=== PATIENT | male | born 1935 | race Caucasian/White ===

== ENCOUNTER 2016-10-31 14:46 | Inpatient (IN) | payer OTHER, BC ==
[~2016-10-31] VITALS: Ht 182.9 cm; Wt 112.1 kg
[2016-10-31] VITALS (32 sets, daily range): BP systolic 93–175; BP diastolic 52–119
--- NOTE | ~2016-10-31 | P ---
[facility] [place] [address] PROCEDURE REPORT Name: KATELYNN BALTAZAR Room #: 242-P [facility] IN M.R.#: [id number] Admission: 10/31/16 Attend Phys: Houston Enriquez MD Discharge: 11/20/16 Date of : 35 Report #: [id number] THIS REPORT FOR: //name// CC: HERMAN German DATE OF SERVICE: 11/17/2016 PROCEDURE: ICD implantation. HISTORY: The patient is an 81-year-old status post recent TAVR, who had an out of hospital cardiac arrest, and is here for ICD implantation for secondary prevention of sudden cardiac . ANESTHESIA: The patient underwent MAC anesthesia with no anesthesia-related complications. DESCRIPTION OF PROCEDURE: The patient underwent informed consent. We discussed the details of the procedure including the risks, which include but not limited to bleeding, infection, vascular damage, cardiac perforation, and pneumothorax. He and his family members were consented and agreed with the above procedure. DESCRIPTION OF PROCEDURE: The patient was prepped and draped in the sterile fashion and received IV antibiotics prior to initiation of the procedure. The patient underwent a venogram showing patency of the left axillary vein. Next, I injected 20 mL of lidocaine below the level of left clavicle. Incision was made, pocket was created over the prepectoral fascia and access was obtained ____ the left axillary vein. Using the extrathoracic approach, a sheath was positioned using the modified Seldinger technique. Next, the lead was positioned in the right ventricular apex under fluoroscopy with adequate pacing and sensing thresholds and the lead was sutured to the prepectoral fascia. The lead was connected to the device. The pocket was irrigated with vancomycin and the pocket was closed in 3 layers and then surgical glue was placed to the outer skin layer. The patient awoke neurologically and hemodynamically intact with no complications and no significant bleeding. The implanted device was [employer] model # [id number], serial #[id number]. The RV lead was [employer] model #7120Q 65 cm, serial #[id number]. The lead demonstrated an R-wave of 12.8 millivolts, pacing impedance of 340 ohms with a pacing threshold of 0.5 volts at 0.3 milliseconds. The device was programmed to the VVI 40 mode with VT zone set at 180 to 220 beats per minute with ATP while charging followed by max output shocks in the VF zone for greater than 220 beats per minute with ATP while charging followed by max output shocks. CONCLUSIONS: [facility] [address] [place] [address] PROCEDURE REPORT Name: DELANEYKATELYNN Room #: 242-P [facility] IN ..#: [id number] Admission: 10/31/16 Attend Phys: Houston Enriquez MD Discharge: 11/20/16 Date of : 35 Report #: [id number] 1. Successful ICD implantation. 2. Satisfactory right ventricular pacing and sensing threshold. <ELECTRONICALLY SIGNED> By: Harrison Perdomo MD 01/01/17 1550 1516 [id number] Harrison Perdomo MD /nt
--- NOTE | ~2016-10-31 | P ---
[facility] [place] [address] PROCEDURE REPORT Name: DELANEYKATELYNN Room #: 242-P ADM IN M.R.#: [id number] Admission: 10/31/16 Attend Phys: Houston Enriquez MD Discharge: Date of : 35 Report #: [id number] THIS REPORT FOR: //name// CC: HERMAN Enriquez DATE OF SERVICE: 11/13/2016 HISTORY: This is an 81-year-old male status post cardiac arrest and requiring ventilation. Plan is for trach and PEG tube placement. Indications were altered mental status. Procedure was performed in OR room 2 at [facility] on 11/13/2016. PROCEDURE: Esophagogastroduodenoscopy with percutaneous endoscopic gastrostomy tube placement. DESCRIPTION OF PROCEDURE: The patient was brought to the OR room, prepped and draped in a sterile fashion per standard procedures and protocols. The adult upper endoscope was introduced through the mouth into the esophagus into the stomach and to the second portion of the duodenum and then withdrawn slowly. The duodenum was normal. There was mild gastritis in the antrum and a few small fundic gland polyps. There was a small hiatal hernia on retroflexion at the GE junction. The esophagus appeared normal. The PEG tube was placed. Lidocaine with 18-gauge needle was introduced into the stomach and then withdrawn slowly. Approximately 1 mL of lidocaine was used and the trocar was introduced into the stomach and a wire was advanced through the trocar. The snare was used to grab the wire and was withdrawn through the mouth and the PEG tube was pulled through and the bumper was placed at 2.5 cm. The procedure was without complications. Sedation was adequate. Please see anesthesiologist's report for the patient's ASA classification and sedation. The patient tolerated the procedure well and the exam was ended. Recommendations are okay to use PEG tube for water and medications now and in 6 hours, can start tube feeds per nutrition recommendations. <ELECTRONICALLY SIGNED> By: Ebenezer Kellogg MD 11/13/16 1431 1223 1319 Ebenezer Kellogg MD /nt
--- NOTE | ~2016-10-31 | HC ---
[facility] [place] [address] CONSULTATION Name: DELANEYKATELYNN Wilfredo Room #: 242-P [facility] IN M.R.#: [id number] Admission: 10/31/16 Attend Phys: Houston Enriquez MD Discharge: 11/20/16 Date of : 35 Report #: [id number] THIS REPORT FOR: //name// CC: HERMAN Enriquez HISTORY OF PRESENT ILLNESS: The patient is an 81-year-old with history of coronary artery disease status post CABG in 2005 and most recently treatment of severe aortic stenosis with a transaortic valve replacement performed in 10/2016 with an Edward Teresa 26 mm valve. This was performed via transfemoral approach. Also has a history of permanent atrial fibrillation. On 10/31/2016, the patient was at the [facility] [employer] and then had a witnessed cardiac arrest. stem crusher has placed an AED on him, which advised shocking the patient for ventricular arrhythmias. EMS was there as well and resuscitated the patient, brought him to the Emergency Room and he was placed in the ICU. That day, he did have multiple recurrent episodes of VT and was started on amiodarone. On 10/31/2016, the patient had 2 episodes of VT, one at 1900 and another one at 2300, both of which failed adenosine, but responded to defibrillation of 200 joules. Since he has been here, he has had an echocardiogram demonstrating EF of 45% to 50% with distal hypokinesis, PA pressures in the 60s. The patient remains intubated. A trial extubation was performed, but he had vocal cord paralysis. He does have history of laryngeal cancer, status post surgical resection and radiation in 2001. He is likely headed for a PEG tube and trach. He is also being followed by HIM for pancytopenia, which is chronic. REVIEW OF SYSTEMS: Unable to obtain. PAST MEDICAL HISTORY: 1. Coronary artery disease, status post CABG in 2005. 2. Permanent atrial fibrillation. 3. TAVR 10/2016 with an Edward Teresa 26 mm valve. 4. Permanent AFib. 5. Hypothyroidism. 6. Gout. 7. Peripheral vascular disease. 8. Laryngeal cancer, status post surgical resection and radiation 2001. SOCIAL HISTORY: Unknown. FAMILY HISTORY: Unknown. ALLERGIES: No known drug allergies. PHYSICAL EXAMINATION: VITAL SIGNS: Temperature is 36.1, pulse 75, respiration 21, blood pressure 113/66, sats are 100%. GENERAL: He is intubated and sedated, in no acute distress. [address] [address] CONSULTATION Name: KATELYNN BALTAZAR Room #: 242-P [facility] IN ..#: [id number] Admission: 10/31/16 Attend Phys: Houston Enriquez MD Discharge: 11/20/16 Date of : 35 Report #: [id number] HEENT: Sclerae anicteric. Oropharynx is intubated. NECK: Supple, with no thyromegaly. HEART: Irregularly irregular with 2/6 murmur heard best at the right upper sternal border. LUNGS: Clear to auscultation bilaterally. ABDOMEN: Soft, nontender, nondistended with no hepatosplenomegaly. EXTREMITIES: There is no clubbing, cyanosis, edema. NEUROLOGIC: Cranial nerves 2-12 could not be assessed due to sedated state. LABORATORY DATA: White count is 2, hemoglobin is 7, platelets are 49 down from 60. Blood gas, his pH is 7.4, pCO2 35, pO2 123. Coags: INR is 1.4. Chemistry today, sodium 143, potassium 4.4, chloride 100, carbon dioxide 25, BUN 11, creatinine 1.1. Troponin max was . Echo EF 45% to 50% with distal hypokinesis, PA pressure 68. Chest x-ray from 11/07/2016 shows no acute process. CT of the chest also revealed no acute process. EKG from 11/01/2016 showed an atrioventricular rhythm and EKG from 10/31/2016 showed AFib with RVR, heart rate 130s. EKG from 11/03/2016 showed normal sinus rhythm, QTC 405 milliseconds, no ischemic changes. ASSESSMENT AND PLAN: 1. Out of hospital cardiac arrest. 2. Coronary artery disease, status post coronary artery bypass graft. 3. Severe aortic stenosis, status post transaortic valve replacement. 4. Permanent atrial fibrillation. 5. Hypothyroidism. 6. Gout. 7. Peripheral vascular disease. 8. Elevated troponin. 9. Pancytopenia. 10. Vocal cord paralysis. 11. Respiratory failure. In summary, the patient is an 81-year-old with history of CAD and severe aortic stenosis, status post TAVR who has had out of hospital cardiac arrest. The etiology of this is unclear. It does not appear to be secondary to ongoing ischemia. I think that his elevated troponin was likely due to the rest and is not due to acute coronary syndrome. In terms of his recurrent VT, we should continue with amiodarone therapy. In terms of his out of hospital cardiac arrest, if the patient makes a meaningful recovery, then we could proceed with ICD implantation for secondary prevention of sudden cardiac . I would await to do this after he has had his trach and PEG tube placed and other evaluations have been completed including possible bone marrow biopsy. [address] [place] [address] CONSULTATION Name: KATELYNN BALTAZAR Room #: 242-P [facility] IN M.R.#: [id number] Admission: 10/31/16 Attend Phys: Houston Enriquez MD Discharge: 11/20/16 Date of : 35 Report #: [id number] Thank you for allowing me to participate in his care. <ELECTRONICALLY SIGNED> By: Harrison Perdomo MD 12/01/16 1450 1217 1631 Harrison Perdomo MD /nt
--- NOTE | ~2016-10-31 | O ---
[facility] [place] [address] OPERATIVE REPORT Name: KATELYNN BALTAZAR Room #: 242-P ADM IN M.R.#: [id number] Admission: 10/31/16 Attend Phys: Houston Enriquez MD Discharge: Date of : 35 Report #: [id number] THIS REPORT FOR: //name// CC: HERMAN Enriquez DATE OF SERVICE: 11/13/2016 PROCEDURE: Tracheostomy, CPT CODE 80111. PREOPERATIVE DIAGNOSES: 1. Respiratory failure. 2. Vocal cord paresis. POSTOPERATIVE DIAGNOSES: 1. Respiratory failure. 2. Vocal cord paresis. SURGEON: Moe Javed M.D. ANESTHESIA: General. ESTIMATED BLOOD LOSS: 10 mL. COMPLICATIONS: None. SPECIMENS: None. DRAINS AND TUBES: A size 8 Shiley DCT tracheostomy tube was then placed at the end of the case. FINDINGS: The patient was found to have normal tracheal anatomy. INDICATIONS FOR PROCEDURE: The patient is an 81-year-old gentleman who had cardiac arrest and was brought emergently to the hospital. He has been intubated for over a week and has failed wean from the vent and has had one trial of extubation. During this, it was noted his vocal cords were not moving well. It was decided that he would benefit from tracheostomy. The risks, benefits and alternatives were discussed with his family and they agreed to proceed. DESCRIPTION OF PROCEDURE: After informed consent was obtained, the patient was taken to the operating room and placed in the supine position. He underwent general anesthesia. He was prepped and draped in the usual fashion. A time-out was performed. The correct patient and procedure were identified. Approximately 3 mL of 1% lidocaine with 1:100,000 epinephrine were injected into [facility] [address] [place] [address] OPERATIVE REPORT Name: KATELYNN BALTAZAR Room #: 242-P ADM IN .R.#: [id number] Admission: 10/31/16 Attend Phys: Houston Enriquez MD Discharge: Date of : 35 Report #: [id number] the skin overlying the trachea. After time was given for vasoconstriction to take effect, a vertical incision was made extending from the inferior aspect of the cricoid cartilage toward the sternal notch. Subcutaneous fat was then dissected out using Bovie cautery. The fascia was then divided in the midline using Bovie cautery. The strap muscles were identified and these were also divided in the midline using Bovie cautery and retracted laterally. The cautery was used to score down onto the cricoid cartilage and the thyroid isthmus was elevated off of the anterior tracheal wall using a right angle. Thyroid isthmus was then divided using the Bovie cautery. Thyroid lobes were then retracted to the right and left side of the trachea. A Wagner flap was designed between the second and third tracheal rings. This incision was made with an 11 blade scalpel between the second and third tracheal rings and the vertical limbs were then created using curved heavy Garza scissors. A 2-0 silk stitch was then passed through the inferior aspect of the stoma and through the tracheal ring and the flap was retracted inferiorly. The endotracheal tube was then slowly withdrawn superiorly by the anesthesia service. A size 8 tracheostomy tube was then put into the tracheal stoma. He was then connected to the anesthesia circuit and tidal CO2s were confirmed. Hemostasis was then achieved using the Bovie cautery and by packing Surgicel on both sides of the tracheostomy tube and the tube was then secured with 2-0 nylon sutures at each corner and Velcro trach ties. The patient was then turned back over to anesthesia service. He was successfully taken to the ICU in stable condition. All counts were reported as correct and there were no complications during the procedure. <ELECTRONICALLY SIGNED> By: Moe Javed MD 11/14/16 1159 1305 1407 Moe Javed MD /nt
--- NOTE | ~2016-10-31 | 2DMMODE ---
[facility] [address] [place] [address] 2 D/M-MODE ECHOCARDIOGRAM Name: KATELYNN BALTAZAR Room #: 242-P ADM IN .R.#: [id number] Admission: 10/31/16 Attend Phys: Houston Enriquez, Discharge: Date of : 35 Date of Service: 11/03/16 1639 Report #: [id number] THIS REPORT FOR: //name// APPROVED REPORT Study performed: 11/03/2016 09:35:15 EXAM: Comprehensive 2D, Doppler, and color-flow Echocardiogram Patient Location: ICU Room #: 242 Status: routine Other Information Study Quality: PoorFair Technically limited study due to patient on ventilator, inability to position patient. Indications Hx TAVR 2D Dimensions LVEF(%): 58.11 (>50%) IVSd: 15.69 (7-11mm) LVDd: 53.24 mm PWd: 14.81 (7-11mm) LVDs: 36.78 (25-40mm) Aortic Root: 27.79 mm Peralta's LVEF: 58.11 % Volumes Left Atrial Volume (Systole) LA ESV Index: 47.00 mL/m2 Left Ventricle The left ventricle is normal size. Borderline concentric left ventricular hypertrophy. The left ventricular systolic function is normal. LVEF is 50-55%. Right Ventricle The right ventricle is normal size. The right ventricular systolic function is probably normal. Atria Left atrium is dilated. Right atrium is dilated. [facility] [address] [place] [address] 2 D/M-MODE ECHOCARDIOGRAM Name: KATELYNN BALTAZAR Room #: 242-P [facility] IN .R.#: [id number] Admission: 10/31/16 Attend Phys: Houston Enriquez, Discharge: Date of : 35 Date of Service: 11/03/16 1639 Report #: [id number] Aortic Valve TAVR was noted. Trace aortic regurgitation. Mitral Valve The mitral valve is normal in structure. Trace mitral regurgitation. Tricuspid Valve The tricuspid valve is normal in structure. Trace tricuspid regurgitation. Pulmonic Valve The pulmonary valve is normal in structure. Trace pulmonic regurgitation. Pericardium There is no pericardial effusion. <Conclusion> Very limited study. The left ventricular systolic function is normal. LVEF is 50-55%. Bioprosthetic aortic valve. No doppler The right ventricular systolic function is probably normal. Size and function difficult to assess Trace aortic regurgitation. There is no pericardial effusion. <ELECTRONICALLY SIGNED> By: Lyndon Siddiqui MD, [facility] 11/03/16 1639 163 1639 Lyndon Siddiqui MD, FACC /INF
--- NOTE | ~2016-10-31 | HC ---
[facility] [place] [address] CONSULTATION Name: KATELYNN BALTAZAR Room #: 242-P ADM IN M.R.#: [id number] Admission: 10/31/16 Attend Phys: Houston Enriquez MD Discharge: Date of : 35 Report #: [id number] THIS REPORT FOR: //name// CC: HERMAN Enriquez REASON FOR CONSULTATION: Out of hospital cardiac arrest. HISTORY OF PRESENT ILLNESS: The patient is an 81-year-old gentleman who was sitting next to his in the [employer] shop when he lost consciousness. Per EMS, he was defibrillated and received CPR. The down time was from when paramedics were called and when ACLS was started is unknown. He is currently intubated and comatose. His history comes from limited emergency room records. No family is available despite attempts to reach them. After he got to the ICU, he had a sustained episode of monomorphic ventricular tachycardia. This was defibrillated. Presentation note suggests that he had prior heart surgery. Chest x-ray suggests possibly the presence of bioprosthetic aortic valve delivered through TAVR. More details were not known. ALLERGIES: Unknown. MEDICATIONS: Unknown. PAST MEDICAL HISTORY: Permanent atrial fibrillation, remote CABG (No hx of prior DE); recent TAVR (October 2016), hypothyroidism, gout. Recently documented favorable coronary anatomy by angiography FAMILY HISTORY, SOCIAL HISTORY AND REVIEW OF SYSTEMS: Not obtainable. PHYSICAL EXAMINATION: GENERAL: Reveals a comatose gentleman who is intubated with coarse, but equal breath sounds. He is comatose. CARDIAC: Regular rate and rhythm with a 1-2/6 systolic ejection murmur at the base. RESPIRATORY: Reveals diffuse rhonchi and wheezing. ABDOMEN: Soft and nontender. EXTREMITIES: Without cyanosis, clubbing or edema. LABORATORY DATA: EKG demonstrates atrial fibrillation. There are no acute ST or T-wave changes. Sodium is 132, potassium 4.8, creatinine 1.6, troponin 0. White count 9.3, hemoglobin 8.8, platelet count 77,000. CT of the head demonstrates no acute intracranial process. Chest x-ray demonstrates cardiomegaly, prominent thoracic aorta. IMPRESSION: 1. Out of hospital cardiac arrest. 2. Paroxysmal, sustained hemodynamically compromising ventricular tachycardia [facility] [address] [place] [address] CONSULTATION Name: KATELYNN BALTAZAR Room #: 242-P [facility] IN M.R.#: [id number] Admission: 10/31/16 Attend Phys: Houston Enriquez MD Discharge: Date of : 35 Report #: [id number] with recurrent defibrillation. 3. Cardiomegaly, prior open heart surgery. 4. Probable transaortic valve replacement/bioprosthetic aortic valve replacement. 5. Anemia. 6. Possible acute kidney injury. 7. 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 8. Probable aspiration with respiratory failure. RECOMMENDATIONS: 1. Intravenous amiodarone. 2. Echocardiogram with Doppler. 3. Cardiac enzymes. 4. Obtain records for additional historical information. 60 minutes of critical care time spent. <ELECTRONICALLY SIGNED> By: Lyndon Siddiqui MD, [facility] 11/02/16 [phone] Lyndon Siddiqui MD, FAC /nt
--- NOTE | ~2016-10-31 | 2DMMODE ---
[facility] [address] [place] [address] 2 D/M-MODE ECHOCARDIOGRAM Name: DELANEYKATELYNN Room #: 242-P [facility] IN .R.#: [id number] Admission: 10/31/16 Attend Phys: Houston Enriquez, Discharge: Date of : 35 Date of Service: 11/03/16 1753 Report #: [id number] THIS REPORT FOR: //name// APPROVED REPORT Study performed: 11/01/2016 06:49:02 EXAM: Comprehensive 2D, Doppler, and color-flow Echocardiogram Patient Location: Bedside Room #: 242 Status: routine Other Information Study Quality: Adequate Indications Status post cardiac arrest. Hx:AVR 2D Dimensions RVDd: 44.45 mm LVEF(%): 51.93 (>50%) IVSd: 14.01 (7-11mm) LVOT Diam: 19.89 (18-24mm) LVDd: 57.38 mm PWd: 13.88 (7-11mm) Ascending Ao: 32.61 (22-36mm) LVDs: 41.89 (25-40mm) Aortic Root: 36.26 mm Peralta's LVEF: 51.93 % Volumes Left Atrial Volume (Systole) Single Plane 4CH: 101.57 mL Single Plane 2CH: 80.97 mL LA ESV Index: 47.00 mL/m2 Aortic Valve AoV Peak Scotty.: 2.16 m/s AO Peak Gr.: 19.42 mmHg LVOT Max P.88 mmHg AO Mean Gr.: 10.50 mmHg AO V2 Mean: 1.53 m/s LVOT Max V: 0.68 m/s AO V2 VTI: 33.80 cm FARHAN Vmax: 0.97 cm2 Mitral Valve MV Decel. Time: 199.20 ms MV E Max Scotty.: 1.29 m/s IVRT: 64.59 ms [facility] [place] [address] 2 D/M-MODE ECHOCARDIOGRAM Name: KATELYNN BALTAZAR Room #: 242-P [facility] IN .R.#: [id number] Admission: 10/31/16 Attend Phys: Houston Enriquez, Discharge: Date of : 35 Date of Service: 11/03/16 1753 Report #: [id number] Pulmonary Valve PV Peak Scotty.: 1.27 m/s PV Peak Gr.: 6.44 mmHg Pulmonary Vein P Vein S: 0.46 m/s P Vein D: 0.30 m/s P Vein S/D Ratio: 1.53 Tricuspid Valve TR Peak Scotty.: 3.79 m/s RAP Estimate: 10.00 mmHg TR Peak Gr.: 57.52 mmHg PA Pressure: 68.00 mmHg Left Ventricle Left ventricle is normal size. Mild concentric left ventricular hypertrophy. Left ventricular systolic function is mildly decreased. LVEF is 45%. This study is not technically sufficiet to allow evaluation of the LV diastolic function due to arrhythmia. This study is not technically sufficient to allow evaluation of the LV diastolic function. Right Ventricle Right ventricle is dilated. Right ventricle is severely hypokinetic. Atria Left atrium is mildly dilated. Right atrium is dilated. Aortic Valve Bioprosthetic aortic valve is present. Peak velocity of 2.2m/s with a PPG of 19mmHg and a MPG of 11mmHg. No aortic regurgitation is present. Mitral Valve Mild mitral annular calcification. Mild mitral regurgitation. No evidence of mitral valve stenosis. Tricuspid Valve The tricuspid valve is normal in structure. There is moderate tricuspid regurgitation. The right atrial pressure is estimated at 10 mmHg. There is moderate-severe pulmonary hypertension with an estimated PAP of 68 mmHg. Pulmonic Valve The pulmonary valve is normal in structure. Moderate pulmonic regurgitation. [address] [address] 2 D/M-MODE ECHOCARDIOGRAM Name: KATELYNN BALTAZAR Room #: 242-P [facility] IN ..#: [id number] Admission: 10/31/16 Attend Phys: Houston Enriquez, Discharge: Date of : 35 Date of Service: 11/03/16 1753 Report #: [id number] Great Vessels The aortic root is normal in size. The ascending aorta is normal in size. IVC is dilated and collapses <50% with inspiration. Pericardium There is no pericardial effusion. <Conclusion> LVEF is 45-50%. This study is not technically sufficiet to allow evaluation of the LV diastolic function due to arrhythmia. Right ventricle is dilated. Right ventricle is severely hypokinetic. Right atrium is dilated. Bioprosthetic aortic valve is present. Peak velocity of 2.2m/s with a PPG of 19mmHg and a MPG of 11mmHg. Mild mitral annular calcification. Mild mitral regurgitation. Pulmonary artery pressure of 68mmHg No pericardial effusion <ELECTRONICALLY SIGNED> By: Lyndon Siddiqui MD, FACC 11/03/161752 52 52 Lyndon Siddiqui MD, FACC /INF
--- NOTE | ~2016-10-31 | S ---
[facility] [place] [address] SURGICAL PATH RPT PROCEDURE Name: KATELYNN BOSS Room #: 242-P ADM IN M.R.#: [id number] Admission: 10/31/16 Date of : 35 Discharge: Report #: [id number] Path Case #: [id number] PATHOLOGY REPORT COLLECTION DATE: 11/07/2016 RECEIVED DATE: 11/07/2016 SUBMITTING PHYS: Dr. Ebenezer Pacheco OTHER PHYS: Dr. [place] Lambert ADDENDUM REPORT (Order Date: 11/13/2016 15:50) ADDENDUM COMMENT: Properly controlled immunohistochemical stains and special stains are performed. (Aspirate smears) Iron: only trace stainable iron, no ringed sideroblasts identified (Block A1) AE1/AE3: non-reactive CD34: no increased blasts Glycophorin A: confirms the increased ME ratio MPO: confirms the increased ME ratio (Block B1) CD34: no increased blasts Glycophorin A: confirms the increased ME ratio MPO: confirms the increased ME ratio The final diagnosis remains unchanged. (JOAQUINW:; d/t: 11/13/2016) Professional services performed by [facility] at [facility] [address] , [place] [address] Technical [facility] performed by [facility] at [address] [place] [address], [address] [place] [address]. ELECTRONICALLY SIGNED BY: Deena Jasso M.D. DATE/TIME:11/13/2016 16:29 SPECIMEN(S) RECEIVED: A.Bone marrow, biopsy B.Bone marrow, clot and/or particle prep C.Bone marrow, aspirate smears D.Peripheral smear * * * * * * * * * * * * FINAL DIAGNOSIS: Bone marrow aspirate, biopsy, cell clot and peripheral blood: [facility] [address] [place] [address] SURGICAL PATH RPT PROCEDURE Name: KATELYNN BOSS Room #: 242-P ADM IN .R.#: [id number] Admission: 10/31/16 Date of : 35 Discharge: Report #: [id number] Path Case #: [id number] - Peripheral blood with pancytopenia including severe normocytic to mildly microcytic anemia, moderate leukopenia and severe thrombocytopenia. - Hypercellular bone marrow with trilineage hematopoiesis, erythroid hyperplasia, significant dyspoiesis and no evidence of lymphoma or acute leukemia (see comment). (CLW:pit; d/t: 11/10/2016) COMMENT: Overall the bone marrow is hypercellular for the patient's age with trilineage hematopoiesis, erythroid hyperplasia, significant dyspoiesis and no evidence of lymphoma or acute leukemia by morphology and flow cytometry. The significant dyspoiesis could represent a low-grade myelodysplastic syndrome. Correlation with clinical history, additional laboratory data and cytogenetics is required. The case was discussed preliminarily with Dr. Marisa Lambert on 11/08/2016 at approximately 12:20 pm. PATHOLOGIST: Deena L. Louisa, M.D. REPORT ELECTRONICALLY SIGNED BY: Deena Jasso M.D. DATE/TIME: 11/10/2016 16:04 * * * * * * * * * * * * MICROSCOPIC DESCRIPTION: CBC Data (11/07/16): WBC 2,000 /uL, RBC 2.44, hemoglobin 7.0 g/dL, hematocrit 20.7%, MCV 85.0 fL, MCH 28.8 pg, MCHC 33.9 g/dL, RDW 18.2%, and platelet count 49,000 /uL. Manual white blood cell differential: segs 55%, bands 6%, lymphs 32%, monos 6%, myelos 1%. Peripheral Blood Smear: Cytomorphological examination of the Villalta's stained peripheral blood smear confirms the provided data. Red blood cells show severe normocytic to mildly microcytic anemia with mild anisocytosis. No significant poikilocytosis is identified. No schistocytes or microspherocytes are seen. White blood cells are moderately decreased in number. They are predominantly segmented neutrophils and are without significant dyspoiesis. A rare granulocyte with abnormal nuclear lobation and a rare less mature granulocyte (myelocyte) are noted. Lymphocytes are predominantly small, round, and mature appearing with condensed chromatin and scant cytoplasm with admixed large granular lymphocytes. On scanning, no markedly atypical lymphoid cells are seen. Monocytes are mature. Platelets are markedly decreased in number and mainly normal in morphology with rare larger platelets noted. Aspirate Smears: Cytomorphological examination of the Villalta's stained aspirate smears show hypercellular spicules present. The overall cellularity is approximately 80%. The myeloid to erythroid ratio is 1:1. Full [address] [address] SURGICAL PATH RPT PROCEDURE Name: KATELYNN BOSS Room #: 242-P ADM IN M.R.#: [id number] Admission: 06/13/17 Date of : 35 Discharge: Report #: [id number] Path Case #: [id number] myeloid maturation is identified and is without significant dyspoiesis. Erythroid maturation is mild to moderately dyserythropoietic with irregular nuclear contours, basophilic stippling, binucleate and multinucleate forms and nuclear budding. In a 500 cell differential, there are 2% blasts (no Rocky rods are seen), 48% more differentiated myeloids, 46% erythroid precursors, and 4% lymphocytes. Megakaryocytes are proportional in number and both normal and abnormal in morphology with variable sizes and nuclear abnormalities including small/hypolobated and micro megakaryocytes present. No lymphoid aggregates or markedly atypical lymphoid cells are seen. Plasma cells are without atypia. Iron stain of the aspirate smear is pending and will be reported as an addendum. Core Biopsy and Cell Clot: The decalcified bone marrow core biopsy is adequate. The bone marrow is hypercellular with an overall cellularity of approximately 80%. The myeloid to erythroid ratio is 1:1. Myeloid and erythroid maturation are dyspoietic. Megakaryocytes are normal in number and both normal and abnormal in morphology. No lymphoid aggregates or markedly atypical lymphoid cells are seen on H and E. Bony trabeculae and blood vessels are unremarkable. The cell clot has spicules present that are similar in cellularity and differential morphology as previously described. Iron stain of the cell clot shows 1/4+ iron positivity with spicules present. Immunohistochemical stains to confirm the M:E ratio are pending and will be reported as an addendum. Flow Cytometry: Flow cytometric immunophenotypic analysis was performed at [facility]. The diagnosis is "1-CD56 immunoreactivity noted in myeloid and monocyte populations, 2- no excess blasts detected". There are 9.4% lymphocytes. Of the lymphocytes, there are 89% T-cells with a CD4/CD8 ratio of 1.2. 4% are NK cells and 13% are large glanular lymphocytes. There are 1.1% CD34 positive blasts. Expression of CD56 in myeloid and monocyte populations may be reactive findings but may also be associated with myeloid neoplasm. No excess blasts acute leukemia or non-Hodgkin's lymphoma is detected. Please see separate flow cytometry report from [facility] ([id number]). Cytogenetics Analysis: Cytogenetic chromosomal analysis is pending at [facility] ([id number]). GROSS PATHOLOGY: A. Received in formalin labeled "Katelynn Boss BM biopsy," is a single needle core of bianchi bone, measuring 1.1 cm in length and 0.2 cm in diameter. The specimen is submitted entirely in cassette A1, following decalcification. B. Received in formalin labeled "Katelynn Boss BM aspirate (clot)," is blood coagulum, measuring 2.6 x 1.0 x 0.2 cm in aggregate [address] [address] SURGICAL PATH RPT PROCEDURE Name: KATELYNN BOSS Room #: 242-P ADM IN M.R.#: [id number] Admission: 10/31/16 Date of : 35 Discharge: Report #: [id number] Path Case #: [id number] dimensions. The specimen is submitted entirely in cassette B1. (KAH; 11/08/2016) CLINICAL HISTORY: Low platelet and post code 81-year-old man with pancytopenia. INITIAL CPT CODE(S): A; 80530, 90261, 99376, 25279, 45749, 33222 B; 32030, 79570, 48972, 14241, 09264 C; 06658, 98296 D; 61689 Professional services performed by [facility] at [facility] [address], [place] [address] Technical services performed by [facility] at [address] [place] [address], [address], [place] [address]. German Garcia [facility] [address] [place] [address] PHONE: [phone] DIRECTOR: Tj Valdes M.D. * * * END OF REPORT * * *
--- NOTE | ~2016-10-31 | EKG ---
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: Elizabeth ZHANG : 1935 Requested By: Maykel Price Order Number: [id number] MD: Lyndon Siddiqui Measurements Intervals [place] Rate: 80 P: 49 NV: 289 QRS: 20 QRSD: 72 T: QT: 351 QTc: 405 Interpretive Statements Sinus rhythm Prolonged NV interval Low voltage, extremity and precordial leads Compared to ECG 11/01/2016 06:29:51 Atrial fibrillation no longer present Electronically Signed On 11-04-2016 10:16:54 CDT by Lyndon Siddiqui [email or web address] <ELECTRONICALLY SIGNED> By: Lyndon Siddiqui MD, [facility] 11/04/16 1016 48 48 Lyndon Siddiqui MD, [facility] /EPI
--- NOTE | ~2016-10-31 | EKG ---
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 : 1935 Requested By: Agustina Mckeon Order Number: [id number] MD: Harrison Perdomo Measurements Intervals [place] Rate: 130 P: NE: QRS: 1 QRSD: 99 T: 54 QT: 317 QTc: 466 Interpretive Statements Atrial fibrillation Low voltage, extremity leads Consider inferior infarct No previous ECG available for comparison Electronically Signed On 10-31-2016 22:05:25 CDT by Harrison Perdomo [email or web address] <ELECTRONICALLY SIGNED> By: Harrison Perdomo MD 10/31/16 2205 1453 52 Harrison Perdomo MD /JR
--- NOTE | ~2016-10-31 | S ---
[facility] [place] [address] SURGICAL PATH RPT PROCEDURE Name: KATELYNN BOSS Room #: 242-P ADM IN M.R.#: [id number] Admission: 10/31/16 Date of : 35 Discharge: Report #: [id number] Path Case #: [id number] PATHOLOGY REPORT COLLECTION DATE: 11/04/2016 RECEIVED DATE: 11/07/2016 SUBMITTING PHYS: Dr. Housotn Enriquez OTHER PHYS: Dr. Michael Lambert SPECIMEN(S) RECEIVED: A.Peripheral smear * * * * * * * * * * * * FINAL DIAGNOSIS: Peripheral blood smear: - Severe normocytic to mildly microcytic anemia and moderate thrombocytopenia. (See comment). COMMENT: Overall the peripheral blood has severe normocytic to mildly microcytic anemia and moderate thrombocytopenia. The WBC is within the normal reference range. The etiology of the findings is unclear based entirely on slide review. Potential causes of normocytic anemia include anemia of chronic disease, treated and/or compensated by vitamin mineral deficiencies, acute blood loss, dilutional and primary bone marrow disorders. Potential causes of microcytic anemia include iron deficiency and thalassemia. Potential causes of thrombocytopenia include immune and non-immune platelet destruction, drug and/or toxic exposures, dilutional and primary bone marrow disorders. Correlation with clinical history and additional laboratory data is recommended. PATHOLOGIST: Deena Jasso M.D. REPORT ELECTRONICALLY SIGNED BY: Deena Jasso M.D. DATE/TIME: 11/07/2016 15:02 * * * * * * * * * * * * MICROSCOPIC DESCRIPTION: CBC Data (11/04/16): WBC 7,700 /uL, RBC 2.49, hemoglobin 7.2 g/dL, hematocrit 21.0%, MCV 84.4 fL, MCH 29.0 pg, MCHC 34.3 g/dL, RDW 18.3%. Platelet count 63,000 /uL. Manual white blood cell differential: segs 93%, lymphs 7%. Peripheral Blood Smear: Cytomorphological examination of the Villalta's stained peripheral blood smear confirms the provided data. Red blood cells show severe normocytic to mildly microcytic anemia with no significant [address] [address] SURGICAL PATH RPT PROCEDURE Name: KATELYNN BOSS Room #: 242-P ADM IN .R.#: [id number] Admission: 10/31/16 Date of : 35 Discharge: Report #: [id number] Path Case #: [id number] poikilocytosis. Mild anisocytosis is noted. No schistocytes or microspherocytes are seen. White blood cells are predominantly segmented neutrophils and are without significant dyspoiesis or significant left shift. Occasional hypersegmented neutrophils are noted. Lymphocytes are predominantly small, round, and mature appearing with condensed chromatin and scant cytoplasm with admixed large granular lymphocytes. Rare monocytes are mature. Platelets are moderate to markedly decreased in number and mainly normal in morphology with rare larger platelets noted. GROSS PATHOLOGY: Peripheral blood smears labeled "Katelynn Boss" are submitted for review. CLINICAL HISTORY: 81 year old man with anemia and thrombocytopenia. Morphologic review of the peripheral blood smear is requested by the patient's physician. INITIAL CPT CODE(S): A; NC Professional services performed by [facility] at [facility] [address], [place] [address] Technical services performed by [facility] at [address] [place] [address], [address], [place] [address]. German Garcia [facility] [address] [place] [address] PHONE: [phone] DIRECTOR: Tj Valdes M.D. * * * END OF REPORT * * *
--- NOTE | ~2016-10-31 | CNG ---
[facility] [place] [address] CYTO-NONGYN REPORT PROCEDURE Name: KATELYNN BOSS Room #: 242-P ADM IN M.R.#: [id number] Admission: 10/31/16 Date of : 35 Discharge: Report #: [id number] Path Case #: [id number] CYTOPATHOLOGY REPORT COLLECTION DATE: 11/03/2016 RECEIVED DATE: 11/08/2016 SUBMITTING PHYS: Dr. Michael Osorio OTHER PHYS: Dr. [place] Enriquez CLINICAL HISTORY: Post code. SPECIMEN(S) RECEIVED: A.Sputum * * * * * * * * * * * * FINAL DIAGNOSIS: A. Sputum: No definite malignant epithelial cells present. Atypical epithelial cells present, most likely reactive bronchial epithelial cells. Reactive squamous epithelial cells in a background of debris and pulmonary macrophages. Co-review: Dr. Christin. Be Jasso. PATHOLOGIST: Ynes Ashton M.D. REPORT ELECTRONICALLY SIGNED BY: Ynes Ashton M.D. DATE/TIME: 11/10/2016 11:28 * * * * * * * * * * * * GROSS PATHOLOGY: A. Sputum: The specimen is submitted unfixed, labeled "Katelynn Boss". Received by the Cytology Department is five mL of cloudy light pink fluid. One ThinPrep slide was prepared. (clt 11.08.2016) GLAZE MAKER(S): NAMRATA Huang(ASCP) INITIAL CPT CODE(S): A; 21311 Professional services performed by [facility] at [facility] [address] , [place] [address] Technical services performed by [facility] at [address] [place] [address], [address], [place] [address]. CC: German Garcia [facility] [address] [place] [address], [address] [facility] [address] [place] [address] CYTO-NONGYN REPORT PROCEDURE Name: KATELYNN BOSS Room #: 242-P ADM IN M.R.#: [id number] Admission: 10/31/16 Date of : 35 Discharge: Report #: [id number] Path Case #: [id number] [place] [address] PHONE: [phone] DIRECTOR: Tj Valdes M.D. * * * END OF REPORT * * *
--- NOTE | ~2016-10-31 | EEG ---
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 EEG was done by placing the electrodes by standard 10-20 system of electrode placement. Both referential and sequential montages were used for recording. Background activity in this patient's EEG goes up to about 7 Hz and 15 microvolts. It is a symmetrical activity. Photic stimulation is unremarkable. IMPRESSION: This patient's EEG demonstrate well defined cortical activity, although it is slow. No active epileptiform activity was noticed. A prognostication is desired. The patient will need serial EEGs. Thank you very much for this referral. <ELECTRONICALLY SIGNED> By: Jim Wharton MD 11/14/16 1018 1646 1758 Jim Wharton MD /nt
--- NOTE | ~2016-10-31 | CNG ---
[facility] [place] [address] CYTO-NONGYN REPORT PROCEDURE Name: KTAELYNN BOSS Room #: 242-P DIS IN M.R.#: [id number] Admission: 10/31/16 Date of : 35 Discharge: 11/20/16 Report #: [id number] Path Case #: [id number] CYTOPATHOLOGY REPORT COLLECTION DATE: 11/18/2016 RECEIVED DATE: 11/20/2016 SUBMITTING PHYS: Dr. Michael Osorio OTHER PHYS: Dr. [place] Enriquez CLINICAL HISTORY: Cardiac arrest with ROSC SPECIMEN(S) RECEIVED: A.Sputum * * * * * * * * * * * * FINAL DIAGNOSIS: A. Sputum: - No malignant cells identified. Pulmonary macrophages, bronchial epithelial cells and acute and chronic inflammatory cells identified. PATHOLOGIST: Deena Jasso M.D. REPORT ELECTRONICALLY SIGNED BY: Deena Jasso M.D. DATE/TIME: 11/22/2016 12:53 * * * * * * * * * * * * GROSS PATHOLOGY: A. Sputum: The specimen is submitted unfixed, labeled "Katelynn Boss". Received by the Cytology Department is 10 mL of thick cloudy colorless fluid. One ThinPrep slide and a cell block were prepared. (mm 11.20.2016) FLOUR TESTER(S): NAMRATA Joiner(ASCP) INITIAL CPT CODE(S): A; 81141 Professional services performed by [facility] at [facility] [address], [place] [address] Technical services performed by [facility] at [address] [place] [address]., [address], [place] [address]. [facility] [address] [place] [address], [facility] [address] [place], [place] [address] [place] [address] [place] [address] CYTO-NONGYN REPORT PROCEDURE Name: KATELYNN BOSS Room #: 242-P DIS IN M.R.#: [id number] Admission: 10/31/16 Date of : 35 Discharge: 11/20/16 Report #: [id number] Path Case #: [id number] PHONE: [phone] DIRECTOR: Tj Valdes M.D. * * * END OF REPORT * * *
--- NOTE | ~2016-10-31 | EKG ---
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 : 1935 Requested By: Lyndon Siddiqui Order Number: [id number] MD: Lyndon Siddiqui Measurements Intervals [place] Rate: 68 P: ND: QRS: -5 QRSD: 104 T: 73 QT: 431 QTc: 459 Interpretive Statements Atrial fibrillation Possible Aberrant conduction of SV complex(es) Borderline low voltage, extremity leads Nonspecific T abnormalities Compared to ECG 10/31/2016 19:23:01 Ventricular tachycardia now present Aberrant conduction of supraventricular beat(s) now present T-wave abnormality now present Electronically Signed On 11-01-2016 8:44:22 CDT by Lyndon Siddiqui [email or web address] <ELECTRONICALLY SIGNED> By: Lyndon Siddiqui MD, [facility] 11/01/16 0844 0629 Lyndon Siddiqui MD, [facility] /EPI
--- NOTE | ~2016-10-31 | HC ---
[facility] [place] [address] CONSULTATION Name: KATELYNN BALTAZAR Room #: 242-P ADM IN M.R.#: [id number] Admission: 10/31/16 Attend Phys: Houston Enriquez MD Discharge: Date of : 35 Report #: [id number] THIS REPORT FOR: //name// CC: HERMAN ALEC Enriquez DATE OF SERVICE: 11/10/2016 INFECTIOUS DISEASE CONSULTATION ATTENDING PHYSICIAN: Houston Enriquez M.D. CONSULTATION REQUESTED BY: Mable Osorio M.D. REASON FOR CONSULTATION: Bronchopneumonia, antibiotic management. HISTORY OF PRESENT ILLNESS: An 81-year-old white man is admitted after having suffered cardiorespiratory arrest. The patient has suffered several of these episodes and he ended up on mechanical ventilator. The patient had resuscitations and the fibrillations and cardioversion. The patient is now in the intensive care unit on mechanical ventilator. He is awake and alert. He appears to be having some abdominal pain. PAST MEDICAL HISTORY: Coronary artery disease; coronary artery bypass grafting, 2005. Atrial fibrillation. Transaortic aortic valve replacement, October 2016 with an Edward Teresa - 26 mm valve. History of gout. Peripheral vascular disease. Laryngeal cancer, surgical resection, radiation therapy 2001. The patient is found to be pancytopenic on admission, bone marrow biopsy possibly revealing myelodysplasia. The sputum culture has revealed Klebsiella pneumonia and CT scan of the chest revealed no pulmonary embolism, but evidence of possible bronchopneumonia. SOCIAL HISTORY: See H and P old records. FAMILY HISTORY: See H and P old records. REVIEW OF SYSTEMS: The patient in the intensive care unit, ventilator dependent for tracheostomy and percutaneous gastrostomy, pointing to seize abdomen as possible source of abdominal pain. PHYSICAL EXAMINATION: GENERAL: A well-developed, overweight man presenting. VITAL SIGNS: Temperature 97.7, pulse 66, respirations 23 and BP 119/61. The patient receiving some sedation with propofol. He had been on amiodarone drip. He is no longer on pressors. Intake 2551, output 3575, negative balance 1024 in the last 24 hours. The patient is on ventilator, FiO2 at 30% and saturations [facility] [address] [place] [address] CONSULTATION Name: KATELYNN BALTAZAR Room #: 242-P [facility] IN .R.#: [id number] Admission: 10/31/16 Attend Phys: Houston Enriquez MD Discharge: Date of : 35 Report #: [id number] are 97% HEENT: Head normocephalic, atraumatic. Pupils reactive. Mouth unable to examine because of orotracheal intubation. NECK: Supple. LUNGS: Rhonchi, crackles wet sounding, particularly on the left base posteriorly. HEART: S1, S2, no gallop. Irregular rhythm. ABDOMEN: Obese, soft. Not palpable masses or megaly. GENITALIA: Fitch catheter in place. RECTAL EXAMINATION: Deferred. EXTREMITIES: Reveal pretibial and ankle edema. NEUROLOGIC: Grossly within normal limits. LABORATORY DATA: Sodium 143, potassium 4.3, CO2 at 28, BUN 23, creatinine 0.9 and glucose 113. Liver enzymes normal. Albumin 2.7 g/dL. 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 Protime 12.7, INR 1.2. WBC was 1900 on November 09. Today, it is 9800. Hemoglobin 7.3 g/dL and platelets 61,000. The white blood cell count differential revealed 79% segmented neutrophils, 13% bands. Flow cytometry studies are pending. ABGs yesterday revealed pH of 7.38, pCO2 of 42, pO2 of 85, bicarbonate 24.6 and lactate 1.12. These set of gases on FIO2 of 30%, tidal volume 500 and 5 of PEEP. MICROBIOLOGIC DATA: The sputum culture revealed few Klebsiella pneumoniae sensitive to most tested antibiotics, but ampicillin. RADIOLOGIC EVALUATION: Venous ultrasound, lower extremities, no evidence of DVT. CT scan of the chest PE protocol revealed no evidence of pulmonary embolism, bibasilar infiltrates, peribronchial thickening, small pleural effusion, possible bronchopneumonia, aneurysm, mild dilatation of pulmonary trunk suggestive of pulmonary hypertension, coronary vascular calcification and prosthetic aortic valve. DRUG ALLERGIES: None listed. MEDICATIONS: The patient is on treatment with polyethylene glycol, famotidine, amiodarone drip, filgrastim 480 mcg subcutaneous daily, chlorhexidine oral care, levothyroxine supplementation normal saline infusions, insulin lispro per sliding scale, sedation with propofol, pressors, titration and currently off this medications. The patient is on p.r.n. glucose, Glucagon. 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 ASSESSMENT: 1. Status post cardiorespiratory arrest and ventricular fibrillation, status post resuscitation. 2. Respiratory failure, on mechanical ventilator. [facility] [address] [place] [address] CONSULTATION Name: KATELYNN BALTAZAR Room #: 242-P ADM IN M.R.#: [id number] Admission: 10/31/16 Attend Phys: Houston Enriquez MD Discharge: Date of : 35 Report #: [id number] 3. Possible left lower lobe pneumonia with Klebsiella pneumonia. 4. Pulmonary hypertension. 5. Pancytopenia, possible myelodysplasia. 6. Coronary artery bypass grafting, chronic atrial fibrillation. 7. Status post aortic valve replacement. SUGGESTIONS AND RECOMMENDATIONS: We will continue treatment with parenteral antibiotic. We will discontinue Unasyn. We will use Rocephin 2 grams IV daily. We will repeat cultures on as needed basis since the patient is having some abdominal pain. I wonder if CT scan of abdomen and pelvis may be in order. Dr. Osorio, thank you for requesting my suggestions. <ELECTRONICALLY SIGNED> By: Jac Perdomo MD 11/13/16 1151 1224 1420 Jac Perdomo MD /nt
--- NOTE | ~2016-10-31 | 2DMMODE ---
[facility] [address] [facility] [place] [address] 2 D/M-MODE ECHOCARDIOGRAM Name: DELANEYKATELYNN Room #: 242-P [facility] IN .R.#: [id number] Admission: 10/31/16 Attend Phys: Houston Enriquez, Discharge: Date of : 35 Date of Service: 11/01/16 1107 Report #: [id number] THIS REPORT FOR: //name// APPROVED REPORT Study performed: 11/01/2016 06:49:02 EXAM: Comprehensive 2D, Doppler, and color-flow Echocardiogram Patient Location: Bedside Room #: 242 Status: routine Other Information Study Quality: Adequate Technically limited study due to arrhythmia, patient in ICU on vent. Indications Status post cardiac arrest. Hx: AVR 2D Dimensions RVDd: 44.45 mm LVEF(%): 51.93 (>50%) IVSd: 14.01 (7-11mm) LVOT Diam: 19.89 (18-24mm) LVDd: 57.38 mm PWd: 13.88 (7-11mm) Ascending Ao: 32.61 (22-36mm) LVDs: 41.89 (25-40mm) Aortic Root: 36.26 mm Peralta's LVEF: 51.93 % Volumes Left Atrial Volume (Systole) Single Plane 4CH: 101.57 mL Single Plane 2CH: 80.97 mL LA ESV Index: 47.00 mL/m2 Aortic Valve AoV Peak Scotty.: 2.16 m/s AO Peak Gr.: 19.42 mmHg LVOT Max P.88 mmHg AO Mean Gr.: 10.50 mmHg AO V2 Mean: 1.53 m/s LVOT Max V: 0.68 m/s AO V2 VTI: 33.80 cm FARHAN Vmax: 0.97 cm2 Mitral Valve MV Decel. Time: 199.20 ms MV E Max Scotty.: 1.29 m/s [facility] [place] [address] 2 D/M-MODE ECHOCARDIOGRAM Name: DELANEYKATELYNN Room #: 242-P [facility] IN .R.#: [id number] Admission: 10/31/16 Attend Phys: Houston Enriquez, Discharge: Date of : 35 Date of Service: 11/01/16 1107 Report #: [id number] IVRT: 64.59 ms Pulmonary Valve PV Peak Scotty.: 1.27 m/s PV Peak Gr.: 6.44 mmHg Pulmonary Vein P Vein S: 0.46 m/s P Vein D: 0.30 m/s P Vein S/D Ratio: 1.53 Tricuspid Valve TR Peak Scotty.: 3.79 m/s RAP Estimate: 10.00 mmHg TR Peak Gr.: 57.52 mmHg PA Pressure: 68.00 mmHg Left Ventricle The left ventricle is normal size. Mild concentric left ventricular hypertrophy. Left ventricular systolic function is mildly decreased. LVEF 45%. This study is not technically sufficient to allow evaluation of the LV diastolic function due to arrhythmia. Right Ventricle Right ventricle is dilated. Right ventricle is severely hypokinetic. Atria Left atrium is mildly dilated. Right atrium is dilated. Aortic Valve Bioprosthetic aortic valve is present. Peak velocity of 2.2m/s with a PPG of 19mmHg and a MPG of 11mmHg. No aortic regurgitation is present. Mitral Valve Mild mitral annular calcification. Mild mitral regurgitation. No evidence of mitral valve stenosis. Tricuspid Valve The tricuspid valve is normal in structure. There is moderate tricuspid regurgitation. The right atrial pressure is estimated at 10 mmHg. There is moderate-severe pulmonary hypertension with an estimated PAP of 68mmHg. Pulmonic Valve The pulmonary valve is normal in structure. Moderate pulmonic regurgitation. [address] [address] 2 D/M-MODE ECHOCARDIOGRAM Name: KATELYNN BALTAZAR Room #: 242-P [facility] IN [facility]#: [id number] Admission: 10/31/16 Attend Phys: Houston Enriquez, Discharge: Date of : 35 Date of Service: 11/01/16 1107 Report #: [id number] Great Vessels The aortic root is normal in size. The ascending aorta is normal in size. IVC is dilated and collapses <50% with inspiration. Pericardium There is no pericardial effusion. <Conclusion> Left ventricular systolic function is mildly decreased. LVEF 45-50% with distal septal hypokinesis. Right ventricle is dilated and severely hypokinetic. Right atrium is dilated. Bioprosthetic aortic valve is present. Peak velocity of 2.2m/s with a PPG of 19mmHg and a MPG of 11mmHg. No aortic regurgitation. Mild mitral annular calcification. Mild mitral regurgitation. There is moderate-severe pulmonary hypertension with an estimated PAP of 68mmHg. There is no pericardial effusion. <ELECTRONICALLY SIGNED> By: Eduardo De La Rosa MD 11/01/16 1107 1107 1107 Eduardo De La Rosa MD /INF
--- NOTE | ~2016-10-31 | HC ---
[facility] [place] [address] CONSULTATION Name: KATELYNN BALTAZAR Room #: 242-P [facility] IN M.R.#: [id number] Admission: 10/31/16 Attend Phys: Houston Enriquez MD Discharge: 11/20/16 Date of : 35 Report #: [id number] THIS REPORT FOR: //name// CC: HERMANVan Enriquez DATE OF SERVICE: 10/31/2016 REASON FOR CONSULTATION: Acute respiratory failure, status post arrest. IMPRESSION: 1. Acute respiratory failure. 2. Status post arrest. 3. Anemia. 4. Recent aortic valve replacement. PLAN: Hypothermia protocol, ICU protocol. Cardiology to see Venous Doppler of lower extremities and CT head will be done, usual DVT and ulcer prophylaxis. HISTORY OF PRESENT ILLNESS: An 81-year-old male with history of recent valve replacement, went to [employer] today, lost consciousness by report, shocked once, CPR and epi was given, intubated in the Emergency Room. Stabilized. PAST MEDICAL HISTORY: Will be obtained. FAMILY HISTORY: Will be obtained. SOCIAL HISTORY: Will be obtained. PHYSICAL EXAMINATION: VITAL SIGNS: The patient was intubated, discussed with team, seemed to be moving all extremities. HEART: Irregular. LUNGS: Coarse, bilateral. ABDOMEN: Bowel sounds present. EXTREMITIES: ____ left leg. LABORATORY DATA: A pH 7.315, pCO2 of 39, pO2 512, bicarbonate 20, 100%, rate of 14, tidal volume 500, PEEP of 5. INR 1.4, PTT 34. D-dimer 2.38, BUN 16, creatinine 1.6, albumin 29. Chest x-ray showed cardiomegaly, PICC line right upper extremity was seen. Will follow closely with you. <ELECTRONICALLY SIGNED> By: Michael Osorio MD 12/05/16 1502 [id number] 0138 Michael Osorio MD /nt
--- NOTE | ~2016-10-31 | EKG ---
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
--- NOTE | ~2016-10-31 | EKG ---
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 : 1935 Requested By: Maykel Price Order Number: [id number] MD: Harrison Perdomo Measurements Intervals [place] Rate: 88 P: [place]: QRS: 15 QRSD: 103 T: 101 QT: 333 QTc: 403 Interpretive Statements Atrial fibrillation Low voltage, extremity leads Borderline repolarization abnormality Compared to ECG 11/03/2016 20:49:42 Sinus rhythm no longer present First degree AV block no longer present Electronically Signed On 11-11-2016 15:58:47 CDT by Harrison Perdomo [email or web address] <ELECTRONICALLY SIGNED> By: Harrison Perdomo MD 11/11/16 1558 1705 1705 Harrison Perdomo MD /EPI
[2016-10-31 15:05] LABS: ABSOLUTE NEUTROPHILS 6.7 thou/uL (1.4-8.2); BASOPHILS 0.4 % (0.0-2.0); EOSINOPHILS 0.1 % (0.0-3.0); HEMATOCRIT 27.2 % (42.0-52.0); HEMOGLOBIN 9.3 gm/dL (14.0-18.0); LYMPHOCYTES 25.4 % (24.0-44.0); MCH 28.5 pg (26.0-34.0); MCHC 34.1 g/dL (28.0-37.0); MCV 83.6 fL (80.0-100.0); MONOCYTES 2.2 % (1.0-8.0); POLYS 71.9 % (36.0-66.0); RBC 3.26 mil/uL (4.50-6.00); RDW 18.4 % (10.5-14.5); WBC 9.3 thou/uL (4.0-11.0)
[2016-10-31 15:06] LABS: POC CA IONIZED 4.6 mg/dL (4.5-5.3); POC CREATININE 1.3 mg/dL (0.6-1.3); POC HEMOGLOBIN 8.8 g/dL (14.0-18.0); POC POTASSIUM 4.9 mmol/L (3.5-5.1)
[2016-10-31 15:07] LABS: MANUAL DIFF NO
[2016-10-31 15:15] LABS: ANION GAP 11 mmol/L (7-16); BUN 16 mg/dL (7-18); CHLORIDE 100 mmol/L (98-107); CO2 21 mmol/L (21-32); CREATININE 1.6 mg/dL (0.7-1.3); GLUCOSE 210 mg/dL (74-106); POTASSIUM 4.8 mmol/L (3.5-5.1); SODIUM 132 mmol/L (136-145)
[2016-10-31 15:21] LABS: APTT 34.1 Seconds (24.5-32.8); INR 1.4; PROTIME 14.5 Seconds (9.3-11.4)
[2016-10-31 15:22] LABS: ALBUMIN 2.9 g/dL (3.4-5.0); ALKALINE PHOSPHATASE 79 U/L (46-116); DIRECT BILIRUBIN 0.8 mg/dL (<0.1-0.3); SGOT 36 U/L (15-37); SGPT 24 U/L (30-65); TOTAL BILIRUBIN 1.7 mg/dL (<0.1-1.0); TOTAL PROTEIN 6.3 g/dL (6.4-8.2); TROPONIN-I < 0.04 ng/mL (<0.04-0.07)
[2016-10-31 15:26] LABS: ABG SAMPLE TYPE ARTERIAL; BE(vivo) -6.1 mmol/L (-2 to +3); HCO3 19.6 mmol/L (22.0-26.0); LACTATE 3.81 mmol/L (0.5-2.0); O2(CT) 14.2 mL/dL (15.0-23.0); O2Hb 97.3 % (92.0-98.0); PCO2 39.3 mmHg (35.0-45.0); pH 7.315 (7.360-7.450); sO2 99.9 % (92.0-98.0); tCO2 20.8 mmol/L (24.0-30.0)
[2016-10-31 15:27] LABS: STICK SITE R.RADIAL; TIDAL VOLUME 500 ml
[2016-10-31 15:48] LABS: PLATELET COUNT 77 thou/uL (150-400); PLATELET ESTIMATE DECREASED
[2016-10-31 20:10] LABS: ABG SAMPLE TYPE ARTERIAL; BE(vivo) -4.7 mmol/L (-2 to +3); LACTATE 1.27 mmol/L (0.5-2.0); O2(CT) 13.6 mL/dL (15.0-23.0); O2Hb 97.3 % (92.0-98.0); PCO2 35.8 mmHg (35.0-45.0); PO2 150.2 mmHg (80.0-100.0); STICK SITE L.RADIAL; pH 7.366 (7.360-7.450); sO2 98.9 % (92.0-98.0); tCO2 21.1 mmol/L (24.0-30.0)
[2016-10-31 23:51] LABS: HEMOGLOBIN 8.1 gm/dL (14.0-18.0); MCH 28.6 pg (26.0-34.0); MCHC 33.8 g/dL (28.0-37.0); MCV 84.6 fL (80.0-100.0); RBC 2.84 mil/uL (4.50-6.00); RDW 18.1 % (10.5-14.5); WBC 7.9 thou/uL (4.0-11.0)
[2016-11-01] VITALS (95 sets, daily range): BP systolic 64–150; BP diastolic 41–90
[2016-11-01 00:06] LABS: FIBRINOGEN 361.3 mg/dL (210-360); INR 1.5; PROTIME 15.5 Seconds (9.3-11.4)
[2016-11-01 00:55] LABS: CALCIUM 7.3 mg/dL (8.5-10.1); CREATININE 1.3 mg/dL (0.7-1.3); MAGNESIUM 1.5 mg/dL (1.8-2.4); POTASSIUM 3.9 mmol/L (3.5-5.1)
[2016-11-01 05:30] LABS: ABG SAMPLE TYPE ARTERIAL; BE(vivo) -5.7 mmol/L (-2 to +3); HCO3 19.3 mmol/L (22.0-26.0); LACTATE 1.45 mmol/L (0.5-2.0); O2(CT) 13.4 mL/dL (15.0-23.0); O2Hb 96.4 % (92.0-98.0); PCO2 35.6 mmHg (35.0-45.0); PO2 118.6 mmHg (80.0-100.0); pH 7.351 (7.360-7.450); sO2 98.2 % (92.0-98.0); tCO2 20.3 mmol/L (24.0-30.0)
[2016-11-01 05:31] LABS: STICK SITE L.RADIAL; TIDAL VOLUME 500 ml
[2016-11-01 06:28] LABS: HEMATOCRIT 24.4 % (42.0-52.0); HEMOGLOBIN 8.4 gm/dL (14.0-18.0); MCH 28.8 pg (26.0-34.0); MCHC 34.6 g/dL (28.0-37.0); MCV 83.1 fL (80.0-100.0); PLATELET COUNT 57 thou/uL (150-400); RBC 2.93 mil/uL (4.50-6.00); WBC 7.7 thou/uL (4.0-11.0)
[2016-11-01 06:36] LABS: MANUAL DIFF YES
[2016-11-01 06:43] LABS: APTT 42.2 Seconds (24.5-32.8); INR 1.4; PROTIME 14.7 Seconds (9.3-11.4)
[2016-11-01 06:54] LABS: ALBUMIN 2.8 g/dL (3.4-5.0); CALCIUM 8.1 mg/dL (8.5-10.1); CK-MB MASS 5.3 ng/mL (<0.5-3.6); CREATININE 1.3 mg/dL (0.7-1.3); MAGNESIUM 2.1 mg/dL (1.8-2.4); PHOSPHORUS 4.5 mg/dL (2.5-4.9); POTASSIUM 3.9 mmol/L (3.5-5.1); TOTAL BILIRUBIN 2.6 mg/dL (<0.1-1.0); TOTAL PROTEIN 5.9 g/dL (6.4-8.2); TROPONIN-I 0.3 ng/mL (<0.04-0.07)
[2016-11-01 08:25] LABS: ABSOLUTE NEUTROPHILS 6.9 thou/uL (1.4-8.2); TOTAL CELL COUNT 100
[2016-11-01 08:26] LABS: ANISOCYTOSIS 1+; OVALOCYTES FEW
[2016-11-01 14:11] LABS: CK-MB MASS 3.9 ng/mL (<0.5-3.6); CREATININE 1.1 mg/dL (0.7-1.3); POTASSIUM 3.8 mmol/L (3.5-5.1); TROPONIN-I 0.24 ng/mL (<0.04-0.07)
[2016-11-01 14:53] LABS: HEMATOCRIT 25.6 % (42.0-52.0); HEMOGLOBIN 8.8 gm/dL (14.0-18.0); MCH 29.1 pg (26.0-34.0); MCHC 34.3 g/dL (28.0-37.0); MCV 84.6 fL (80.0-100.0); RBC 3.02 mil/uL (4.50-6.00); RDW 17.9 % (10.5-14.5); WBC 7.5 thou/uL (4.0-11.0)
[2016-11-01 15:05] LABS: CALCIUM 8.1 mg/dL (8.5-10.1); MAGNESIUM 2.2 mg/dL (1.8-2.4); PHOSPHORUS 4.5 mg/dL (2.5-4.9); TROPONIN-I 0.25 ng/mL (<0.04-0.07)
[2016-11-01 15:15] LABS: APTT 42.3 Seconds (24.5-32.8); INR 1.3; PROTIME 13.8 Seconds (9.3-11.4)
[2016-11-01 19:25] LABS: HEMATOCRIT 23.1 % (42.0-52.0); HEMOGLOBIN 7.9 gm/dL (14.0-18.0); MCH 28.9 pg (26.0-34.0); MCHC 34.3 g/dL (28.0-37.0); MCV 84.3 fL (80.0-100.0); RBC 2.74 mil/uL (4.50-6.00); RDW 17.6 % (10.5-14.5); WBC 5.7 thou/uL (4.0-11.0)
[2016-11-01 19:33] LABS: CALCIUM 7.9 mg/dL (8.5-10.1); CREATININE 1.2 mg/dL (0.7-1.3); POTASSIUM 4.2 mmol/L (3.5-5.1)
[2016-11-01 19:41] LABS: APTT 45.8 Seconds (24.5-32.8); INR 1.4; PHOSPHORUS 4.7 mg/dL (2.5-4.9); PROTIME 14.6 Seconds (9.3-11.4); TROPONIN-I 0.16 ng/mL (<0.04-0.07)
[2016-11-02] VITALS (59 sets, daily range): BP systolic 79–129; BP diastolic 38–79
[2016-11-02 01:19] LABS: CALCIUM 8.2 mg/dL (8.5-10.1); CK-MB MASS 2.9 ng/mL (<0.5-3.6); CREATININE 1.4 mg/dL (0.7-1.3); POTASSIUM 4.3 mmol/L (3.5-5.1); TROPONIN-I 0.18 ng/mL (<0.04-0.07)
[2016-11-02 04:47] LABS: ABG SAMPLE TYPE ARTERIAL; BE(vivo) -6.7 mmol/L (-2 to +3); HCO3 17.6 mmol/L (22.0-26.0); LACTATE 1.13 mmol/L (0.5-2.0); O2(CT) 12.2 mL/dL (15.0-23.0); O2Hb 93.3 % (92.0-98.0); PCO2 30.8 mmHg (35.0-45.0); PO2 94.9 mmHg (80.0-100.0); pH 7.375 (7.360-7.450); sO2 97.2 % (92.0-98.0); tCO2 18.6 mmol/L (24.0-30.0)
[2016-11-02 04:48] LABS: STICK SITE L.RADIAL
[2016-11-02 05:06] LABS: ABSOLUTE NEUTROPHILS 4.7 thou/uL (1.4-8.2); EOSINOPHILS 0.1 % (0.0-3.0); HEMATOCRIT 22.5 % (42.0-52.0); HEMOGLOBIN 7.7 gm/dL (14.0-18.0); RBC 2.68 mil/uL (4.50-6.00)
[2016-11-02 05:08] LABS: BASOPHILS 0.2 % (0.0-2.0); MCH 28.6 pg (26.0-34.0); MCHC 34.1 g/dL (28.0-37.0); MCV 83.8 fL (80.0-100.0); POLYS 83.7 % (36.0-66.0); RDW 18.1 % (10.5-14.5); WBC 5.7 thou/uL (4.0-11.0)
[2016-11-02 05:11] LABS: MANUAL DIFF NO
[2016-11-02 05:13] LABS: PLATELET COUNT 45 thou/uL (150-400)
[2016-11-02 05:17] LABS: ALBUMIN 2.5 g/dL (3.4-5.0); CALCIUM 7.8 mg/dL (8.5-10.1); CREATININE 1.4 mg/dL (0.7-1.3); POTASSIUM 4.5 mmol/L (3.5-5.1); TOTAL BILIRUBIN 3.2 mg/dL (<0.1-1.0); TOTAL PROTEIN 5.5 g/dL (6.4-8.2)
[2016-11-03] VITALS (63 sets, daily range): BP systolic 65–168; BP diastolic 42–82
[2016-11-03 05:11] LABS: HEMATOCRIT 20.7 % (42.0-52.0); HEMOGLOBIN 7.2 gm/dL (14.0-18.0); MCHC 34.5 g/dL (28.0-37.0); MCV 83.9 fL (80.0-100.0); RBC 2.47 mil/uL (4.50-6.00); WBC 5.8 thou/uL (4.0-11.0)
[2016-11-03 09:15] LABS: CALCIUM 7.2 mg/dL (8.5-10.1)
[2016-11-03 09:17] LABS: ABG SAMPLE TYPE ARTERIAL; BE(vivo) -4.4 mmol/L (-2 to +3); HCO3 20.4 mmol/L (22.0-26.0); LACTATE 0.95 mmol/L (0.5-2.0); O2(CT) 10.4 mL/dL (15.0-23.0); O2Hb 94.1 % (92.0-98.0); PCO2 35.9 mmHg (35.0-45.0); PO2 97.2 mmHg (80.0-100.0); STICK SITE L.RADIAL; pH 7.372 (7.360-7.450); sO2 97.3 % (92.0-98.0); tCO2 21.5 mmol/L (24.0-30.0)
[2016-11-03 09:18] LABS: Pressure Support 8 cm H20
[2016-11-04] VITALS (86 sets, daily range): BP systolic 89–133; BP diastolic 43–69
[2016-11-04 04:29] LABS: HEMOGLOBIN 7.2 gm/dL (14.0-18.0); MCHC 34.3 g/dL (28.0-37.0); MCV 84.4 fL (80.0-100.0); PLATELET COUNT 63 thou/uL (150-400); RBC 2.49 mil/uL (4.50-6.00); RDW 18.3 % (10.5-14.5); WBC 7.7 thou/uL (4.0-11.0)
[2016-11-04 04:41] LABS: ALBUMIN 2.5 g/dL (3.4-5.0); CALCIUM 7.9 mg/dL (8.5-10.1); CREATININE 1.3 mg/dL (0.7-1.3); POTASSIUM 4.9 mmol/L (3.5-5.1); TOTAL BILIRUBIN 1.3 mg/dL (<0.1-1.0); TOTAL PROTEIN 5.7 g/dL (6.4-8.2)
[2016-11-04 04:43] LABS: MANUAL DIFF YES
[2016-11-04 05:17] LABS: ABG SAMPLE TYPE ARTERIAL; HCO3 18.7 mmol/L (22.0-26.0); LACTATE 0.89 mmol/L (0.5-2.0); O2(CT) 11.6 mL/dL (15.0-23.0); O2Hb 97.8 % (92.0-98.0); PCO2 44.1 mmHg (35.0-45.0); PO2 219.7 mmHg (80.0-100.0); STICK SITE RRA; TIDAL VOLUME 500 ml; pH 7.246 (7.360-7.450); sO2 99.3 % (92.0-98.0); tCO2 20.1 mmol/L (24.0-30.0)
[2016-11-04 05:18] LABS: ABG COMMENT AC14 500 +5 60%
[2016-11-04 05:33] LABS: ABSOLUTE NEUTROPHILS 7.2 thou/uL (1.4-8.2); ANISOCYTOSIS 2+; LARGE PLATELETS OCCASIONAL; MACROCYTES 1+; POLYCHROMASIA OCCASIONAL; TOTAL CELL COUNT 100
[2016-11-04] MEDS ORDERED: HYDROCODON-ACE1 EAC7 PO (09:14)
[2016-11-04] MEDS ORDERED: NORCO 5-325 TA1 EACH PO (09:14)
[2016-11-04] MEDS ORDERED: ALLOPURINOL 10100 M1 PO (09:15)
[2016-11-04] MEDS ORDERED: GAVISCON 80-141 EACH PO (09:15)
[2016-11-04] MEDS ORDERED: ROSUVASTATIN CA20 MG PO (09:16)
[2016-11-04] MEDS ORDERED: SPIRIVA INH (09:16)
[2016-11-04] MEDS ORDERED: APAP500 PO (09:17)
[2016-11-04] MEDS ORDERED: ALBUTEROL INH (09:20)
[2016-11-04] MEDS ORDERED: ELIQUIS5 MG PO (09:20)
[2016-11-04] MEDS ORDERED: [UNRECOGNIZED DRUG - OTHER] NASAL (09:22)
[2016-11-04] MEDS ORDERED: OMEGA-31000 M1 PO (09:22)
[2016-11-04] MEDS ORDERED: CLARITIN10 MG PO (09:22)
[2016-11-04] MEDS ORDERED: PRILOSEC PO (09:23)
[2016-11-04] MEDS ORDERED: FLOMAX0.4 MG PO (09:24)
[2016-11-04] MEDS ORDERED: LEVOTHYROXINE 0.1 MG PO (09:24)
[2016-11-04 12:12] LABS: ABG SAMPLE TYPE ARTERIAL; BE(vivo) -6.8 mmol/L (-2 to +3); HCO3 19.1 mmol/L (22.0-26.0); LACTATE 0.94 mmol/L (0.5-2.0); O2(CT) 10.4 mL/dL (15.0-23.0); O2Hb 96.2 % (92.0-98.0); PCO2 40.2 mmHg (35.0-45.0); sO2 98.4 % (92.0-98.0); tCO2 20.3 mmol/L (24.0-30.0)
[2016-11-04 12:15] LABS: STICK SITE L.RADIAL; TIDAL VOLUME 500 ml; pH 7.295 (7.360-7.450)
[2016-11-04 13:10] LABS: % SATURATION 38 % (20-39); IRON 46 ug/dL (65-175); TIBC 121 ug/dL (250-450); UIBC 75 ug/dL
[2016-11-04 13:14] LABS: FOLIC ACID 16.2 ng/mL (8.6-58.9)
[2016-11-05] VITALS (90 sets, daily range): BP systolic 76–145; BP diastolic 44–96
[2016-11-05 05:07] LABS: HEMOGLOBIN 6.8 gm/dL (14.0-18.0); PLATELET COUNT 60 thou/uL (150-400)
[2016-11-05 05:09] LABS: MCHC 34.3 g/dL (28.0-37.0); MCV 84.6 fL (80.0-100.0); RBC 2.34 mil/uL (4.50-6.00); RDW 18.1 % (10.5-14.5)
[2016-11-05 05:23] LABS: MANUAL DIFF YES
[2016-11-05 05:25] LABS: CALCIUM 8.2 mg/dL (8.5-10.1); CREATININE 1.3 mg/dL (0.7-1.3); HEMATOCRIT 19.8 % (42.0-52.0); POTASSIUM 4.6 mmol/L (3.5-5.1)
[2016-11-05 06:53] LABS: ABSOLUTE NEUTROPHILS 4.4 thou/uL (1.4-8.2); ANISOCYTOSIS 1+; HYPOCHROMASIA 1+; MICROCYTES 2+; PLATELET ESTIMATE DECREASED; TOTAL CELL COUNT 100
[2016-11-05 16:38] LABS: ABG SAMPLE TYPE ARTERIAL; BE(vivo) -5.7 mmol/L (-2 to +3); HCO3 20.2 mmol/L (22.0-26.0); LACTATE 1.53 mmol/L (0.5-2.0); O2(CT) 11.2 mL/dL (15.0-23.0); O2Hb 96.7 % (92.0-98.0); PCO2 41.2 mmHg (35.0-45.0); PO2 136.6 mmHg (80.0-100.0); pH 7.308 (7.360-7.450); sO2 98.5 % (92.0-98.0); tCO2 21.5 mmol/L (24.0-30.0)
[2016-11-05 16:39] LABS: FIO2 40 %; STICK SITE L.BRACHIAL; TIDAL VOLUME 500 ml
[2016-11-05 17:18] LABS: HEPATITIS C VIRUS AB 0.2 (0.0-0.9)
[2016-11-06] VITALS (47 sets, daily range): BP systolic 90–133; BP diastolic 41–67
[2016-11-06 05:29] LABS: HEMATOCRIT 20.8 % (42.0-52.0); HEMOGLOBIN 7.1 gm/dL (14.0-18.0); MCHC 34.2 g/dL (28.0-37.0); MCV 84.9 fL (80.0-100.0); RBC 2.45 mil/uL (4.50-6.00); RDW 17.9 % (10.5-14.5); WBC 2.1 thou/uL (4.0-11.0)
[2016-11-06 05:40] LABS: CALCIUM 8.1 mg/dL (8.5-10.1); CREATININE 1.3 mg/dL (0.7-1.3); MAGNESIUM 2.2 mg/dL (1.8-2.4); POTASSIUM 4.7 mmol/L (3.5-5.1)
[2016-11-06 05:50] LABS: ABG SAMPLE TYPE ARTERIAL; HCO3 21.7 mmol/L (22.0-26.0); LACTATE 1.26 mmol/L (0.5-2.0); O2(CT) 10.2 mL/dL (15.0-23.0); O2Hb 94.7 % (92.0-98.0); PCO2 42.3 mmHg (35.0-45.0); PO2 100.5 mmHg (80.0-100.0); sO2 97.2 % (92.0-98.0)
[2016-11-06 05:51] LABS: STICK SITE L.BRACHIAL; TIDAL VOLUME 500 ml; pH 7.328 (7.360-7.450)
[2016-11-06 17:36] LABS: ABSOLUTE RETIC COUNT 0.0602 10^6/uL; OBSERVED RETIC COUNT 2.41 % (0.6-2.6)
[2016-11-07] VITALS (38 sets, daily range): BP systolic 96–130; BP diastolic 36–70
[2016-11-07 04:39] LABS: ABG SAMPLE TYPE ARTERIAL; BE(vivo) -1.8 mmol/L (-2 to +3); HCO3 22.4 mmol/L (22.0-26.0); LACTATE 0.99 mmol/L (0.5-2.0); O2Hb 96.4 % (92.0-98.0); PCO2 35.6 mmHg (35.0-45.0); pH 7.417 (7.360-7.450); tCO2 23.5 mmol/L (24.0-30.0)
[2016-11-07 04:40] LABS: STICK SITE L.RADIAL; sO2 97.8 % (92.0-98.0)
[2016-11-07 04:41] LABS: ABG COMMENT A/C MODE; PO2 123.4 mmHg (80.0-100.0); TIDAL VOLUME 500 ml
[2016-11-07 05:18] LABS: HEMATOCRIT 20.7 % (42.0-52.0); MCH 28.8 pg (26.0-34.0); MCHC 33.9 g/dL (28.0-37.0); RBC 2.44 mil/uL (4.50-6.00); RDW 18.2 % (10.5-14.5)
[2016-11-07 05:20] LABS: PLATELET COUNT 49 thou/uL (150-400)
[2016-11-07 05:26] LABS: CALCIUM 8.2 mg/dL (8.5-10.1); CREATININE 1.1 mg/dL (0.7-1.3); MAGNESIUM 1.9 mg/dL (1.8-2.4); POTASSIUM 4.4 mmol/L (3.5-5.1)
[2016-11-07 11:07] LABS: MANUAL DIFF YES
[2016-11-07 13:09] LABS: ABSOLUTE NEUTROPHILS 1.2 thou/uL (1.4-8.2); MYELOCYTES 1 %; TOTAL CELL COUNT 100
[2016-11-07 13:10] LABS: ANISOCYTOSIS 1+; OVALOCYTES FEW; POIKILOCYTOSIS SLIGHT
[2016-11-08] VITALS (36 sets, daily range): BP systolic 95–138; BP diastolic 34–77
[2016-11-08 04:49] LABS: ABG SAMPLE TYPE ARTERIAL; BE(vivo) -2.7 mmol/L (-2 to +3); HCO3 22.3 mmol/L (22.0-26.0); LACTATE 0.49 mmol/L (0.5-2.0); O2(CT) 10.6 mL/dL (15.0-23.0); O2Hb 94.7 % (92.0-98.0); PCO2 39.1 mmHg (35.0-45.0); PO2 98.6 mmHg (80.0-100.0); pH 7.374 (7.360-7.450); sO2 97.4 % (92.0-98.0); tCO2 23.5 mmol/L (24.0-30.0)
[2016-11-08 04:50] LABS: STICK SITE L.RADIAL; TIDAL VOLUME 500 ml
[2016-11-08 05:38] LABS: HEMOGLOBIN 7.1 gm/dL (14.0-18.0); MCH 28.9 pg (26.0-34.0); RBC 2.47 mil/uL (4.50-6.00); WBC 2.7 thou/uL (4.0-11.0)
[2016-11-08 05:40] LABS: HEMATOCRIT 20.9 % (42.0-52.0); MCV 84.9 fL (80.0-100.0); RDW 18.3 % (10.5-14.5)
[2016-11-08 05:50] LABS: ALBUMIN 2.4 g/dL (3.4-5.0); CALCIUM 8.4 mg/dL (8.5-10.1); CREATININE 0.9 mg/dL (0.7-1.3); POTASSIUM 4.6 mmol/L (3.5-5.1); TOTAL BILIRUBIN 0.6 mg/dL (<0.1-1.0); TOTAL PROTEIN 5.2 g/dL (6.4-8.2)
[2016-11-08 11:50] LABS: APTT 34.1 Seconds (24.5-32.8); INR 1.3
[2016-11-09] VITALS (39 sets, daily range): BP systolic 95–126; BP diastolic 43–89
[2016-11-09 03:23] LABS: MCH 28.7 pg (26.0-34.0)
[2016-11-09 03:25] LABS: MCHC 34.3 g/dL (28.0-37.0); MCV 83.6 fL (80.0-100.0); RBC 2.21 mil/uL (4.50-6.00); RDW 17.7 % (10.5-14.5)
[2016-11-09 03:26] LABS: MANUAL DIFF YES
[2016-11-09 03:27] LABS: HEMATOCRIT 18.4 % (42.0-52.0); HEMOGLOBIN 6.3 gm/dL (14.0-18.0); PLATELET COUNT 42 thou/uL (150-400); WBC 1.9 thou/uL (4.0-11.0)
[2016-11-09 03:36] LABS: ALBUMIN 2.3 g/dL (3.4-5.0); CALCIUM 8.4 mg/dL (8.5-10.1); CREATININE 0.8 mg/dL (0.7-1.3); POTASSIUM 4.4 mmol/L (3.5-5.1); TOTAL BILIRUBIN 0.6 mg/dL (<0.1-1.0)
[2016-11-09 04:05] LABS: INR 1.2; PROTIME 12.7 Seconds (9.3-11.4)
[2016-11-09 04:56] LABS: ABSOLUTE NEUTROPHILS 1.3 thou/uL (1.4-8.2); ANISOCYTOSIS 1+; LARGE PLATELETS RARE; TOTAL CELL COUNT 50
[2016-11-09 17:15] LABS: HEMATOCRIT 24.9 % (42.0-52.0); HEMOGLOBIN 8.4 gm/dL (14.0-18.0); MCH 29.5 pg (26.0-34.0); MCHC 33.7 g/dL (28.0-37.0); MCV 87.4 fL (80.0-100.0); RBC 2.84 mil/uL (4.50-6.00); RDW 18.2 % (10.5-14.5); WBC 10.3 thou/uL (4.0-11.0)
[2016-11-09 17:23] LABS: ANION GAP 8 mmol/L (7-16); BUN 30 mg/dL (7-18); CALCIUM 8.6 mg/dL (8.5-10.1); CHLORIDE 109 mmol/L (98-107); CO2 27 mmol/L (21-32); GLUCOSE 142 mg/dL (74-106); POTASSIUM 4.5 mmol/L (3.5-5.1); SODIUM 144 mmol/L (136-145)
[2016-11-09 17:30] LABS: ABG SAMPLE TYPE ARTERIAL; BE(vivo) -0.5 mmol/L (-2 to +3); HCO3 24.6 mmol/L (22.0-26.0); LACTATE 1.12 mmol/L (0.5-2.0); O2(CT) 11.6 mL/dL (15.0-23.0); O2Hb 94.1 % (92.0-98.0); PCO2 42.3 mmHg (35.0-45.0); pH 7.382 (7.360-7.450); sO2 96.3 % (92.0-98.0); tCO2 25.9 mmol/L (24.0-30.0)
[2016-11-09 17:31] LABS: ABG COMMENT CMV; STICK SITE L.BRACHIAL; TIDAL VOLUME 500 ml
[2016-11-09 17:32] LABS: ALBUMIN 2.7 g/dL (3.4-5.0); ALKALINE PHOSPHATASE 52 U/L (46-116); SGOT 10 U/L (15-37); SGPT 13 U/L (30-65); TOTAL BILIRUBIN 0.9 mg/dL (<0.1-1.0); TOTAL PROTEIN 5.6 g/dL (6.4-8.2); TROPONIN-I < 0.04 ng/mL (<0.04-0.07)
[2016-11-10] VITALS (48 sets, daily range): BP systolic 91–136; BP diastolic 43–76
[2016-11-10 06:10] LABS: HEMATOCRIT 21.8 % (42.0-52.0); HEMOGLOBIN 7.3 gm/dL (14.0-18.0); MCH 29.3 pg (26.0-34.0); MCHC 33.5 g/dL (28.0-37.0); MCV 87.6 fL (80.0-100.0); PLATELET COUNT 61 thou/uL (150-400); RBC 2.49 mil/uL (4.50-6.00); RDW 18.1 % (10.5-14.5); WBC 9.8 thou/uL (4.0-11.0)
[2016-11-10 06:13] LABS: CALCIUM 8.5 mg/dL (8.5-10.1); CREATININE 0.9 mg/dL (0.7-1.3); MAGNESIUM 1.9 mg/dL (1.8-2.4); POTASSIUM 4.3 mmol/L (3.5-5.1)
[2016-11-10 06:16] LABS: MANUAL DIFF YES
[2016-11-10 08:35] LABS: ANISOCYTOSIS 1+; OVALOCYTES FEW; POIKILOCYTOSIS SLIGHT; TOTAL CELL COUNT 100
[2016-11-11] VITALS (40 sets, daily range): BP systolic 102–126; BP diastolic 43–67
[2016-11-11 05:26] LABS: ABG SAMPLE TYPE ARTERIAL; BE(vivo) 0.7 mmol/L (-2 to +3); HCO3 26.6 mmol/L (22.0-26.0); LACTATE 0.97 mmol/L (0.5-2.0); O2(CT) 12.7 mL/dL (15.0-23.0); O2Hb 92.3 % (92.0-98.0); PCO2 48.3 mmHg (35.0-45.0); PO2 74.3 mmHg (80.0-100.0); pH 7.358 (7.360-7.450); sO2 94.3 % (92.0-98.0)
[2016-11-11 05:28] LABS: STICK SITE L.RADIAL
[2016-11-11 05:29] LABS: TIDAL VOLUME 500 ml
[2016-11-11 05:40] LABS: HEMOGLOBIN 6.8 gm/dL (14.0-18.0)
[2016-11-11 05:42] LABS: HEMATOCRIT 20.8 % (42.0-52.0); MCH 28.8 pg (26.0-34.0); MCHC 32.9 g/dL (28.0-37.0); RBC 2.37 mil/uL (4.50-6.00); RDW 18.2 % (10.5-14.5); WBC 11.9 thou/uL (4.0-11.0)
[2016-11-11 05:46] LABS: MCV 87.8 fL (80.0-100.0)
[2016-11-11 05:47] LABS: CALCIUM 8.5 mg/dL (8.5-10.1); CREATININE 0.9 mg/dL (0.7-1.3)
[2016-11-12] VITALS (24 sets, daily range): BP systolic 95–116; BP diastolic 39–53
[2016-11-12 05:34] LABS: ABG SAMPLE TYPE ARTERIAL; BE(vivo) 2.1 mmol/L (-2 to +3); HCO3 28.1 mmol/L (22.0-26.0); LACTATE 0.83 mmol/L (0.5-2.0); O2(CT) 11.3 mL/dL (15.0-23.0); O2Hb 92.2 % (92.0-98.0); PCO2 51.6 mmHg (35.0-45.0); PO2 77.2 mmHg (80.0-100.0); pH 7.354 (7.360-7.450); sO2 94.7 % (92.0-98.0); tCO2 29.7 mmol/L (24.0-30.0)
[2016-11-12 05:35] LABS: STICK SITE R.BRACHIAL; TIDAL VOLUME 500 ml
[2016-11-12 05:56] LABS: HEMATOCRIT 22.5 % (42.0-52.0); HEMOGLOBIN 7.5 gm/dL (14.0-18.0); MCH 29.2 pg (26.0-34.0); MCHC 33.4 g/dL (28.0-37.0); MCV 87.5 fL (80.0-100.0); RBC 2.57 mil/uL (4.50-6.00); WBC 14.1 thou/uL (4.0-11.0)
[2016-11-12 06:11] LABS: CALCIUM 8.6 mg/dL (8.5-10.1); CREATININE 0.8 mg/dL (0.7-1.3); POTASSIUM 4.2 mmol/L (3.5-5.1)
[2016-11-13] VITALS (39 sets, daily range): BP systolic 91–151; BP diastolic 39–73
[2016-11-13 04:36] LABS: HEMATOCRIT 23.4 % (42.0-52.0); HEMOGLOBIN 7.7 gm/dL (14.0-18.0); MCH 28.7 pg (26.0-34.0); MCHC 32.7 g/dL (28.0-37.0); MCV 87.7 fL (80.0-100.0); RBC 2.67 mil/uL (4.50-6.00); RDW 18.7 % (10.5-14.5); WBC 12.1 thou/uL (4.0-11.0)
[2016-11-13 04:50] LABS: CALCIUM 8.3 mg/dL (8.5-10.1); CREATININE 0.9 mg/dL (0.7-1.3); POTASSIUM 4.1 mmol/L (3.5-5.1)
[2016-11-13 05:27] LABS: ABG SAMPLE TYPE ARTERIAL; BE(vivo) 0 mmol/L (-2 to +3); HCO3 25.4 mmol/L (22.0-26.0); LACTATE 0.89 mmol/L (0.5-2.0); O2(CT) 14.3 mL/dL (15.0-23.0); PCO2 44.5 mmHg (35.0-45.0); PO2 80.2 mmHg (80.0-100.0); STICK SITE L.RADIAL; TIDAL VOLUME 500 ml; pH 7.374 (7.360-7.450); sO2 95.5 % (92.0-98.0); tCO2 26.7 mmol/L (24.0-30.0)
[2016-11-14] VITALS (23 sets, daily range): BP systolic 112–156; BP diastolic 42–88
[2016-11-14 04:17] LABS: HEMATOCRIT 24.1 % (42.0-52.0); HEMOGLOBIN 8.1 gm/dL (14.0-18.0); MCH 29.2 pg (26.0-34.0); MCHC 33.5 g/dL (28.0-37.0); MCV 87.1 fL (80.0-100.0); RBC 2.77 mil/uL (4.50-6.00); WBC 13.1 thou/uL (4.0-11.0)
[2016-11-14 04:26] LABS: CALCIUM 8.4 mg/dL (8.5-10.1)
[2016-11-14 05:13] LABS: ABG SAMPLE TYPE ARTERIAL; BE(vivo) 2.2 mmol/L (-2 to +3); HCO3 25.9 mmol/L (22.0-26.0); LACTATE 0.99 mmol/L (0.5-2.0); O2(CT) 12.1 mL/dL (15.0-23.0); O2Hb 93.7 % (92.0-98.0); PCO2 36.7 mmHg (35.0-45.0); PO2 80.6 mmHg (80.0-100.0); STICK SITE R.BRACHIAL; pH 7.467 (7.360-7.450); sO2 96.5 % (92.0-98.0); tCO2 27.1 mmol/L (24.0-30.0)
[2016-11-14 05:14] LABS: TIDAL VOLUME 500 ml
[2016-11-15] VITALS (24 sets, daily range): BP systolic 101–149; BP diastolic 44–75
[2016-11-15 05:38] LABS: CALCIUM 8.7 mg/dL (8.5-10.1); CREATININE 0.9 mg/dL (0.7-1.3); POTASSIUM 3.5 mmol/L (3.5-5.1)
[2016-11-16] VITALS (11 sets, daily range): BP systolic 101–136; BP diastolic 49–91
[2016-11-16 05:19] LABS: CALCIUM 8.8 mg/dL (8.5-10.1); CREATININE 0.9 mg/dL (0.7-1.3); POTASSIUM 3.7 mmol/L (3.5-5.1)
[2016-11-17] VITALS (43 sets, daily range): BP systolic 91–129; BP diastolic 34–83
[2016-11-17 05:17] LABS: ABSOLUTE NEUTROPHILS 7.6 thou/uL (1.4-8.2); BASOPHILS 0.7 % (0.0-2.0); EOSINOPHILS 0.3 % (0.0-3.0); HEMOGLOBIN 7.3 gm/dL (14.0-18.0); LYMPHOCYTES 9.6 % (24.0-44.0); MCH 29.6 pg (26.0-34.0); MCHC 33.3 g/dL (28.0-37.0); MCV 88.9 fL (80.0-100.0); MONOCYTES 4.7 % (1.0-8.0); PLATELET COUNT 59 thou/uL (150-400); POLYS 84.7 % (36.0-66.0); RBC 2.48 mil/uL (4.50-6.00); RDW 18.7 % (10.5-14.5); WBC 8.9 thou/uL (4.0-11.0)
[2016-11-17 05:24] LABS: CREATININE 0.9 mg/dL (0.7-1.3); POTASSIUM 3.9 mmol/L (3.5-5.1)
[2016-11-17 05:27] LABS: MANUAL DIFF NO
[2016-11-17 05:32] LABS: INR 1.2; PROTIME 12.5 Seconds (9.3-11.4)
[2016-11-18] VITALS (19 sets, daily range): BP systolic 95–119; BP diastolic 44–91
[2016-11-18 05:40] LABS: CALCIUM 8.6 mg/dL (8.5-10.1)
[2016-11-18 18:45] LABS: HEMATOCRIT 20.9 % (42.0-52.0); HEMOGLOBIN 7.1 gm/dL (14.0-18.0); MCHC 33.9 g/dL (28.0-37.0); MCV 88.5 fL (80.0-100.0); RBC 2.36 mil/uL (4.50-6.00); RDW 18.6 % (10.5-14.5); WBC 6.7 thou/uL (4.0-11.0)
[2016-11-19] VITALS (21 sets, daily range): BP systolic 82–120; BP diastolic 35–84
[2016-11-19 06:23] LABS: MCH 29.9 pg (26.0-34.0); MCHC 33.5 g/dL (28.0-37.0); MCV 89.3 fL (80.0-100.0); RBC 2.35 mil/uL (4.50-6.00); RDW 18.4 % (10.5-14.5); WBC 5.2 thou/uL (4.0-11.0)
[2016-11-20] VITALS (8 sets, daily range): BP systolic 100–132; BP diastolic 43–71
[2016-11-20 02:32] LABS: MCHC 33.5 g/dL (28.0-37.0); RBC 2.14 mil/uL (4.50-6.00)
[2016-11-20 02:34] LABS: MCH 29.7 pg (26.0-34.0); MCV 88.7 fL (80.0-100.0); RDW 18.5 % (10.5-14.5); WBC 5.2 thou/uL (4.0-11.0)
[2016-11-20 02:39] LABS: HEMOGLOBIN 6.4 gm/dL (14.0-18.0)
[2016-11-20] MEDS ORDERED: PROCRIT20000 UNIT SUBQ (13:48)
[2016-11-20] MEDS ORDERED: NYSTATIN 1100000 U/M SWISH&SPIT (13:48)
[2016-11-20] MEDS ORDERED: FUROSEMIDE20 MG/2 ML IV PUSH (13:48)
[2016-11-20] MEDS ORDERED: PACERONE 200 M200 M1 PO (13:48)
[2016-11-20] MEDS ORDERED: MIRALAX17 GM PER TUBE (13:48)
[2016-11-20] MEDS ORDERED: PEPCID20 MG PO (13:48)
[2016-11-20] MEDS ORDERED: POTASSIUM CHLO20 MEQ PER TUBE (13:48)
[2016-11-20] MEDS ORDERED: PROBIOTIC1 EAC1 PO (13:49)
[2016-11-20] MEDS ORDERED: LASIX 40 MG TAB40 M2 PO (14:12)
== END 2016-11-20 16:30 | DRG 3 ==
LOC: ER 14:46 → EDBD 16:09 → ICU 16:09 → EROBS 16:09 → ICU 18:26
PROVIDERS: Emergency Medicine; Family Medicine; Hospitalist; Internal Medicine; Internal Medicine Cardiovascular Disease; Internal Medicine Gastroenterology; Internal Medicine Hematology & Oncology; Internal Medicine Pulmonary Disease; Nurse Practitioner Acute Care; Nurse Practitioner Adult Health
DX: I47.2 Ventricular tachycardia (principal); J96.01 Acute respiratory failure with hypoxia; J15.0 Pneumonia due to Klebsiella pneumoniae; G93.40 Encephalopathy, unspecified; D62 Acute posthemorrhagic anemia; E87.2 Acidosis; D61.818 Other pancytopenia; I50.30 Unspecified diastolic (congestive) heart failure; J98.11 Atelectasis; G93.1 Anoxic brain damage, not elsewhere classified; I27.2 Other secondary pulmonary hypertension; G47.33 Obstructive sleep apnea (adult) (pediatric); I48.2 Chronic atrial fibrillation; I25.10 Atherosclerotic heart disease of native coronary artery without angina pectoris; J38.00 Paralysis of vocal cords and larynx, unspecified; I73.9 Peripheral vascular disease, unspecified; D46.9 Myelodysplastic syndrome, unspecified; Z95.2 Presence of prosthetic heart valve; Z95.1 Presence of aortocoronary bypass graft; Z85.21 Personal history of malignant neoplasm of larynx

== ENCOUNTER 2016-11-24 12:37 | Inpatient (IN) | payer OTHER, BC ==
[~2016-11-24] VITALS: Ht 177.8 cm; Wt 105.2 kg
[2016-11-24] VITALS (27 sets, daily range): BP systolic 68–109; BP diastolic 35–56
--- NOTE | ~2016-11-24 | CNG ---
[facility] [place] [address] CYTO-NONGYN REPORT PROCEDURE Name: KATELYNN BOSS Room #: 452-P ADM IN M.R.#: [id number] Admission: 11/24/16 Date of : 35 Discharge: Report #: [id number] Path Case #: [id number] CYTOPATHOLOGY REPORT COLLECTION DATE: 11/27/2016 RECEIVED DATE: 11/28/2016 SUBMITTING PHYS: Dr. Nacho Hernandez OTHER PHYS: Dr. Rito Salazar CLINICAL HISTORY: ARF, AMS, Symtomatic anemia PROCEDURE: SPECIMEN(S) RECEIVED: A.Bronchoalveolar lavage * * * * * * * * * * * * FINAL DIAGNOSIS: A. Bronchoalveolar lavage: - No malignant cells identified. - Bronchial epithelial cells, alveolar macrophages, and squamous cells present. Macrophages show multinucleation, prominent nucleoli, and some nuclear atypia. PATHOLOGIST: Ynes Ashton M.D. REPORT ELECTRONICALLY SIGNED BY: Ynes Ashton M.D. DATE/TIME: 11/29/2016 16:29 * * * * * * * * * * * * GROSS PATHOLOGY: A. Bronchoalveolar lavage, LLL: The specimen is submitted unfixed, labeled "Katelynn Boss". Received by the Cytology Department is 17 mL of cloudy colorless fluid. One ThinPrep slide was prepared. (mm 11.28.2016) PACU NURSE(S): NAMRATA Huang([facility]) INITIAL CPT CODE(S): A; 46553 Professional services performed by [facility] at [facility] [address], [place] [address] Technical services performed by [facility] at [address] [place] [address], [address], [place] [address]. [facility] [address] [place] [address] CYTO-NONGYN REPORT PROCEDURE Name: KATELYNN BOSS Room #: 452-P ADM IN M.R.#: [id number] Admission: 11/24/16 Date of : 35 Discharge: Report #: [id number] Path Case #: [id number], [address] [place] [address] PHONE: [phone] DIRECTOR: Tj Valdes M.D. * * * END OF REPORT * * *
--- NOTE | ~2016-11-24 | EKG ---
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: MARY CARMEN : 1935 Requested By: Maykel Price Order Number: [id number] MD: Lyndon Siddiqui Measurements Intervals [place] Rate: 108 P: [place]: QRS: -13 QRSD: 101 T: 104 QT: 310 QTc: 416 Interpretive Statements Atrial fibrillation Borderline repolarization abnormality Compared to ECG 11/09/2016 17:05:11 No significant changes Electronically Signed On 11-26-2016 13:14:02 CDT by Lyndon Siddiqui [email or web address] <ELECTRONICALLY SIGNED> By: Lyndon Siddiqui MD, [facility] 11/26/16 1314 1246 1246 Lyndon Siddiqui MD, [facility] /EPI
[~2016-11-24 12:37] MED LIST: ALBUTEROL INH; ALLOPURINOL 10100 M1 PO; APAP500 PO; CLARITIN10 MG PO; ELIQUIS5 MG PO; FLOMAX0.4 MG PO; FUROSEMIDE20 MG/2 ML IV PUSH; GAVISCON 80-141 EACH PO; HYDROCODON-ACE1 EAC7 PO; LASIX 40 MG TAB40 M2 PO; LEVOTHYROXINE 0.1 MG PO; MIRALAX17 GM PER TUBE; NORCO 5-325 TA1 EACH PO; NYSTATIN 1100000 U/M SWISH&SPIT; OMEGA-31000 M1 PO; PACERONE 200 M200 M1 PO; PEPCID20 MG PO; POTASSIUM CHLO20 MEQ PER TUBE; PRILOSEC PO; PROBIOTIC1 EAC1 PO; PROCRIT20000 UNIT SUBQ; ROSUVASTATIN CA20 MG PO; SPIRIVA INH; [UNRECOGNIZED DRUG - OTHER] NASAL
[2016-11-24 13:15] LABS: MCH 29.8 pg (26.0-34.0); MCV 90.4 fL (80.0-100.0); RBC 1.93 mil/uL (4.50-6.00)
[2016-11-24 13:15] LABS: URINE BILIRUBIN NEGATIVE (Negative); URINE BLOOD 1+ (Negative); URINE COLOR YELLOW; URINE GLUCOSE-RANDOM* NEGATIVE (Negative); URINE KETONES NEGATIVE (Negative); URINE LEUKOCYTES-REFLEX NEGATIVE (Negative); URINE PROTEIN (DIPSTICK) NEGATIVE (Negative); URINE SPECIFIC GRAVITY 1.015 (1.003-1.035); URINE UROBILINOGEN 0.2 E.U./dl (0.2-1.0)
[2016-11-24 13:16] LABS: ABG SAMPLE TYPE ARTERIAL; BE(vivo) 5.8 mmol/L (-2 to +3); LACTATE 1.36 mmol/L (0.5-2.0); O2(CT) 8.8 mL/dL (15.0-23.0); O2Hb 87.6 % (92.0-98.0); PCO2 36.3 mmHg (35.0-45.0); PO2 61.5 mmHg (80.0-100.0); STICK SITE L.BRACHIAL; TIDAL VOLUME 500 ml; pH 7.521 (7.360-7.450); sO2 93.9 % (92.0-98.0); tCO2 30.2 mmol/L (24.0-30.0)
[2016-11-24 13:22] LABS: HEMATOCRIT 17.4 % (42.0-52.0); HEMOGLOBIN 5.8 gm/dL (14.0-18.0)
[2016-11-24 13:26] LABS: HYALINE CASTS 0-3 Few /LPF (None Seen); SQUAMOUS 0-3 Few /LPF (0-3)
[2016-11-24 13:27] LABS: APTT 27.2 Seconds (24.5-32.8); INR 1.2; PROTIME 12.7 Seconds (9.3-11.4)
[2016-11-24 13:27] LABS: CRYSTALS None Seen /LPF (None Seen); URINE RBC 0-2 Rare /HPF (0-2); URINE WBC-REFLEX 0-5 Rare /HPF (0-5)
[2016-11-24 13:42] LABS: CALCIUM 9.2 mg/dL (8.5-10.1); CREATININE 1.7 mg/dL (0.7-1.3); POTASSIUM 5.2 mmol/L (3.5-5.1)
[2016-11-24 13:57] LABS: ALBUMIN 2.6 g/dL (3.4-5.0); DIRECT BILIRUBIN 0.6 mg/dL (<0.1-0.3); TOTAL BILIRUBIN 1.9 mg/dL (<0.1-1.0); TOTAL PROTEIN 5.8 g/dL (6.4-8.2); TROPONIN-I 0.05 ng/mL (<0.04-0.07)
[2016-11-24] MEDS ORDERED: LIPITOR 20 MG T20 M1 PO (14:39)
[2016-11-24] MEDS ORDERED: ARANESP 6060 MCG/0.3 IV (14:41)
[2016-11-25] VITALS (59 sets, daily range): BP systolic 74–114; BP diastolic 22–69
[2016-11-25 05:26] LABS: MCH 30.1 pg (26.0-34.0); WBC 3.6 thou/uL (4.0-11.0)
[2016-11-25 05:27] LABS: MCHC 33.3 g/dL (28.0-37.0); MCV 90.4 fL (80.0-100.0); RBC 2.01 mil/uL (4.50-6.00); RDW 17.7 % (10.5-14.5)
[2016-11-25 05:40] LABS: ABG SAMPLE TYPE ARTERIAL; BE(vivo) 4.4 mmol/L (-2 to +3); HCO3 28.1 mmol/L (22.0-26.0); LACTATE 0.95 mmol/L (0.5-2.0); O2(CT) 8.6 mL/dL (15.0-23.0); O2Hb 95.3 % (92.0-98.0); PCO2 37.5 mmHg (35.0-45.0); PO2 138.7 mmHg (80.0-100.0); STICK SITE R.RADIAL; TIDAL VOLUME 500 ml; pH 7.493 (7.360-7.450); tCO2 29.3 mmol/L (24.0-30.0)
[2016-11-25 05:44] LABS: HEMATOCRIT 18.1 % (42.0-52.0)
[2016-11-25 06:19] LABS: CALCIUM 8.4 mg/dL (8.5-10.1); CREATININE 1.8 mg/dL (0.7-1.3); POTASSIUM 4.4 mmol/L (3.5-5.1)
[2016-11-26] VITALS (27 sets, daily range): BP systolic 88–138; BP diastolic 43–88
[2016-11-26 05:26] LABS: RBC 2.11 mil/uL (4.50-6.00); WBC 2.6 thou/uL (4.0-11.0)
[2016-11-26 05:29] LABS: MCH 30.3 pg (26.0-34.0); MCHC 33.8 g/dL (28.0-37.0); MCV 89.8 fL (80.0-100.0)
[2016-11-26 05:37] LABS: CALCIUM 8.1 mg/dL (8.5-10.1); CREATININE 1.6 mg/dL (0.7-1.3); HEMOGLOBIN 6.4 gm/dL (14.0-18.0); POTASSIUM 3.9 mmol/L (3.5-5.1)
[2016-11-26 09:07] LABS: ABG SAMPLE TYPE ARTERIAL; BE(vivo) 1.1 mmol/L (-2 to +3); HCO3 25.2 mmol/L (22.0-26.0); LACTATE 1.07 mmol/L (0.5-2.0); O2(CT) 10.6 mL/dL (15.0-23.0); O2Hb 94.8 % (92.0-98.0); PCO2 37.9 mmHg (35.0-45.0); PO2 114.2 mmHg (80.0-100.0); pH 7.441 (7.360-7.450); sO2 98.3 % (92.0-98.0); tCO2 26.4 mmol/L (24.0-30.0)
[2016-11-26 09:08] LABS: STICK SITE L.BRACHIAL
[2016-11-26 09:09] LABS: Pressure Support 8 cm H20
[2016-11-27] VITALS (80 sets, daily range): BP systolic 65–130; BP diastolic 42–84
[2016-11-27 05:46] LABS: MCH 30.6 pg (26.0-34.0); MCHC 34.1 g/dL (28.0-37.0); MCV 89.8 fL (80.0-100.0); RBC 2.05 mil/uL (4.50-6.00); RDW 18.3 % (10.5-14.5); WBC 2.2 thou/uL (4.0-11.0)
[2016-11-27 05:49] LABS: HEMATOCRIT 18.4 % (42.0-52.0); HEMOGLOBIN 6.3 gm/dL (14.0-18.0); PLATELET COUNT 17 thou/uL (150-400)
[2016-11-27 05:54] LABS: CALCIUM 8.3 mg/dL (8.5-10.1); CREATININE 1.4 mg/dL (0.7-1.3); POTASSIUM 3.9 mmol/L (3.5-5.1)
[2016-11-27 09:22] LABS: MANUAL DIFF YES
[2016-11-27 09:33] LABS: ABSOLUTE NEUTROPHILS 1.5 thou/uL (1.4-8.2); TOTAL CELL COUNT 100
[2016-11-27 09:34] LABS: ANISOCYTOSIS 2+; OVALOCYTES 1+; POLYCHROMASIA OCCASIONAL
[2016-11-27 11:45] LABS: ABG SAMPLE TYPE ARTERIAL; BE(vivo) 0.9 mmol/L (-2 to +3); HCO3 26.3 mmol/L (22.0-26.0); O2(CT) 10.7 mL/dL (15.0-23.0); O2Hb 92.9 % (92.0-98.0); PCO2 45.5 mmHg (35.0-45.0); PO2 91.4 mmHg (80.0-100.0); pH 7.379 (7.360-7.450); sO2 96.8 % (92.0-98.0); tCO2 27.6 mmol/L (24.0-30.0)
[2016-11-27 11:46] LABS: ABG COMMENT 1 HR T-TUBE TRIAL; STICK SITE L.RADIAL
[2016-11-28] VITALS (13 sets, daily range): BP systolic 93–145; BP diastolic 46–81
[2016-11-28 08:09] LABS: HEMOGLOBIN 7.1 gm/dL (14.0-18.0); MCV 88.7 fL (80.0-100.0); WBC 2.1 thou/uL (4.0-11.0)
[2016-11-28 08:11] LABS: HEMATOCRIT 20.5 % (42.0-52.0); MCH 30.6 pg (26.0-34.0); MCHC 34.4 g/dL (28.0-37.0); PLATELET COUNT 26 thou/uL (150-400); RBC 2.31 mil/uL (4.50-6.00); RDW 17.9 % (10.5-14.5)
[2016-11-28 08:29] LABS: CALCIUM 8.5 mg/dL (8.5-10.1); CREATININE 1.2 mg/dL (0.7-1.3); POTASSIUM 3.9 mmol/L (3.5-5.1)
[2016-11-28 08:45] LABS: MANUAL DIFF YES
[2016-11-28 10:20] LABS: ABSOLUTE NEUTROPHILS 1.4 thou/uL (1.4-8.2); ANISOCYTOSIS 1+; NUCLEATED RBCS 1 /100WBC; OVALOCYTES 1+; POLYCHROMASIA OCCASIONAL; TOTAL CELL COUNT 100
[2016-11-29 03:18] VITALS: BP 121/71
[2016-11-29 05:34] LABS: BASOPHILS 0.4 % (0.0-2.0); HEMOGLOBIN 7.2 gm/dL (14.0-18.0)
[2016-11-29 05:36] LABS: ABSOLUTE NEUTROPHILS 4.4 thou/uL (1.4-8.2); EOSINOPHILS 0.2 % (0.0-3.0); HEMATOCRIT 20.8 % (42.0-52.0); LYMPHOCYTES 16.4 % (24.0-44.0); MCH 30.8 pg (26.0-34.0); MCHC 34.3 g/dL (28.0-37.0); MCV 89.7 fL (80.0-100.0); MONOCYTES 2.8 % (1.0-8.0); POLYS 80.2 % (36.0-66.0); RBC 2.32 mil/uL (4.50-6.00); RDW 18.1 % (10.5-14.5); WBC 5.4 thou/uL (4.0-11.0)
[2016-11-29 05:41] LABS: MANUAL DIFF NO; PLATELET COUNT 25 thou/uL (150-400)
[2016-11-29 07:21] VITALS: BP 120/50
[2016-11-29 11:34] VITALS: BP 101/39
[2016-11-29 15:35] VITALS: BP 101/49
[2016-11-29 20:00] VITALS: BP 99/43
[2016-11-30] VITALS (9 sets, daily range): BP systolic 81–146; BP diastolic 43–91
[2016-11-30 06:14] LABS: HEMOGLOBIN 6.6 gm/dL (14.0-18.0); MCH 30.9 pg (26.0-34.0); WBC 3.3 thou/uL (4.0-11.0)
[2016-11-30 06:17] LABS: MCHC 34.1 g/dL (28.0-37.0); MCV 90.8 fL (80.0-100.0); RBC 2.13 mil/uL (4.50-6.00)
[2016-11-30 06:18] LABS: MANUAL DIFF YES
[2016-11-30 06:21] LABS: HEMATOCRIT 19.3 % (42.0-52.0)
[2016-11-30 07:48] LABS: ABSOLUTE NEUTROPHILS 2.4 thou/uL (1.4-8.2); NUCLEATED RBCS 1 /100WBC; PLATELET COUNT 26 thou/uL (150-400); PLATELET ESTIMATE DECREASED; TOTAL CELL COUNT 100
[2016-11-30 07:49] LABS: OVALOCYTES 1+; POIKILOCYTOSIS 1+
[2016-11-30 07:51] LABS: ANISOCYTOSIS 1+; HYPOCHROMASIA 1+; MACROCYTES SLIGHT; MICROCYTES 1+
[2016-12-01] VITALS (8 sets, daily range): BP systolic 102–142; BP diastolic 34–75
[2016-12-01 04:01] LABS: HEMATOCRIT 20.5 % (42.0-52.0); MCH 30.4 pg (26.0-34.0); MCHC 34.1 g/dL (28.0-37.0); MCV 89.2 fL (80.0-100.0); PLATELET COUNT 27 thou/uL (150-400); RDW 18.2 % (10.5-14.5); WBC 2.7 thou/uL (4.0-11.0)
[2016-12-01 04:04] LABS: MANUAL DIFF YES
[2016-12-01 05:04] LABS: ABSOLUTE NEUTROPHILS 1.8 thou/uL (1.4-8.2); NUCLEATED RBCS 4 /100WBC; TOTAL CELL COUNT 100
[2016-12-01 05:05] LABS: ANISOCYTOSIS 2+; POLYCHROMASIA 1+
[2016-12-01 05:10] LABS: OVALOCYTES 1+
[2016-12-01 05:11] LABS: MICROCYTES 1+
[2016-12-01 05:17] LABS: PLATELET ESTIMATE MARKEDLY DECREASED
[2016-12-01 10:56] LABS: ABG SAMPLE TYPE ARTERIAL; BE(vivo) 1.4 mmol/L (-2 to +3); HCO3 26.4 mmol/L (22.0-26.0); LACTATE 1.26 mmol/L (0.5-2.0); O2(CT) 11.2 mL/dL (15.0-23.0); O2Hb 93.2 % (92.0-98.0); PCO2 43.7 mmHg (35.0-45.0); PO2 92.8 mmHg (80.0-100.0); STICK SITE L.RADIAL; TIDAL VOLUME 500 ml; pH 7.399 (7.360-7.450); sO2 97.1 % (92.0-98.0); tCO2 27.7 mmol/L (24.0-30.0)
[2016-12-02 05:35] LABS: HEMATOCRIT 20.8 % (42.0-52.0); MCH 30.9 pg (26.0-34.0); MCHC 33.8 g/dL (28.0-37.0); MCV 91.3 fL (80.0-100.0); PLATELET COUNT 26 thou/uL (150-400); RBC 2.27 mil/uL (4.50-6.00); RDW 17.7 % (10.5-14.5)
[2016-12-02 05:37] LABS: MANUAL DIFF YES
[2016-12-02 05:38] LABS: WBC 1.9 thou/uL (4.0-11.0)
[2016-12-02 06:59] VITALS: BP 105/95
[2016-12-02 09:54] LABS: ABSOLUTE NEUTROPHILS 0.8 thou/uL (1.4-8.2); ATYPICAL LYMPHS 2 %; TOTAL CELL COUNT 50
[2016-12-02 09:55] LABS: ANISOCYTOSIS 2+; MACROCYTES 1+; MICROCYTES 1+; NUCLEATED RBCS 2 /100WBC; POLYCHROMASIA OCCASIONAL
[2016-12-02 11:49] VITALS: BP 127/44
[2016-12-02 15:14] LABS: HEMOGLOBIN 7.4 gm/dL (14.0-18.0)
[2016-12-02 15:55] VITALS: BP 134/59
[2016-12-02 19:26] VITALS: BP 116/58
[2016-12-03] VITALS (11 sets, daily range): BP systolic 96–188; BP diastolic 43–63
[2016-12-03 05:48] LABS: MCH 31.1 pg (26.0-34.0); MCHC 33.7 g/dL (28.0-37.0); MCV 92.4 fL (80.0-100.0); RBC 2.03 mil/uL (4.50-6.00); RDW 17.1 % (10.5-14.5); WBC 2.9 thou/uL (4.0-11.0)
[2016-12-03 05:54] LABS: MANUAL DIFF YES
[2016-12-03 05:56] LABS: HEMATOCRIT 18.8 % (42.0-52.0); HEMOGLOBIN 6.3 gm/dL (14.0-18.0)
[2016-12-03 05:57] LABS: PLATELET COUNT 15 thou/uL (150-400)
[2016-12-03 07:34] LABS: ABSOLUTE NEUTROPHILS 1.4 thou/uL (1.4-8.2); NUCLEATED RBCS 2 /100WBC; TOTAL CELL COUNT 100
[2016-12-03 07:35] LABS: ANISOCYTOSIS 2+; HYPOCHROMASIA 1+; MACROCYTES 1+; MICROCYTES 1+; OVALOCYTES 1+
[2016-12-03 08:00] LABS: ALBUMIN 2.7 g/dL (3.4-5.0); CALCIUM 9.6 mg/dL (8.5-10.1); CREATININE 1.4 mg/dL (0.7-1.3); POTASSIUM 4.8 mmol/L (3.5-5.1); TOTAL BILIRUBIN 2.6 mg/dL (<0.1-1.0); TOTAL PROTEIN 5.6 g/dL (6.4-8.2)
[2016-12-03 08:21] LABS: URINE BILIRUBIN NEGATIVE (Negative); URINE BLOOD NEGATIVE (Negative); URINE COLOR YELLOW; URINE GLUCOSE-RANDOM* NEGATIVE (Negative); URINE KETONES NEGATIVE (Negative); URINE LEUKOCYTES-REFLEX NEGATIVE (Negative); URINE PROTEIN (DIPSTICK) NEGATIVE (Negative); URINE UROBILINOGEN 0.2 E.U./dl (0.2-1.0)
[2016-12-04] VITALS (10 sets, daily range): BP systolic 86–116; BP diastolic 35–95
[2016-12-04 05:21] LABS: MCHC 33.5 g/dL (28.0-37.0); RBC 2.01 mil/uL (4.50-6.00); WBC 3.5 thou/uL (4.0-11.0)
[2016-12-04 05:22] LABS: MCH 30.4 pg (26.0-34.0); MCV 90.8 fL (80.0-100.0); RDW 18.4 % (10.5-14.5)
[2016-12-04 05:42] LABS: CALCIUM 8.8 mg/dL (8.5-10.1); CREATININE 2.2 mg/dL (0.7-1.3); POTASSIUM 5.4 mmol/L (3.5-5.1)
[2016-12-04 06:01] LABS: MANUAL DIFF YES
[2016-12-04 06:02] LABS: HEMOGLOBIN 6.1 gm/dL (14.0-18.0)
[2016-12-04 06:03] LABS: HEMATOCRIT 18.3 % (42.0-52.0); PLATELET COUNT 16 thou/uL (150-400)
[2016-12-04 07:19] LABS: ABSOLUTE NEUTROPHILS 2.2 thou/uL (1.4-8.2); METAMYELOCYTES 1 %; NUCLEATED RBCS 2 /100WBC; TOTAL CELL COUNT 100
[2016-12-04 07:22] LABS: ANISOCYTOSIS 2+; OVALOCYTES FEW
[2016-12-04 07:24] LABS: ATYPICAL LYMPHS 1 %
[2016-12-04 15:12] LABS: ABG SAMPLE TYPE ARTERIAL; BE(vivo) -6.5 mmol/L (-2 to +3); HCO3 21.4 mmol/L (22.0-26.0); LACTATE 3.48 mmol/L (0.5-2.0); O2(CT) 10.3 mL/dL (15.0-23.0); O2Hb 89.8 % (92.0-98.0); PCO2 56.6 mmHg (35.0-45.0); PO2 73.1 mmHg (80.0-100.0); sO2 90.8 % (92.0-98.0); tCO2 23.1 mmol/L (24.0-30.0)
[2016-12-04 15:13] LABS: STICK SITE L.RADIAL; TIDAL VOLUME 500 ml; pH 7.195 (7.360-7.450)
[2016-12-05 05:50] LABS: MCH 29.9 pg (26.0-34.0); MCV 90.7 fL (80.0-100.0); RBC 2.01 mil/uL (4.50-6.00); RDW 18.8 % (10.5-14.5)
[2016-12-05 05:55] LABS: MANUAL DIFF YES
[2016-12-05 05:58] VITALS: BP 85/40
[2016-12-05 06:00] LABS: HEMATOCRIT 18.2 % (42.0-52.0); PLATELET COUNT 19 thou/uL (150-400)
[2016-12-05 07:18] VITALS: BP 89/49
[2016-12-05 07:18] LABS: ABSOLUTE NEUTROPHILS 1.7 thou/uL (1.4-8.2); HYPOCHROMASIA 1+; NUCLEATED RBCS 1 /100WBC; TOTAL CELL COUNT 100
[2016-12-05 07:19] LABS: ANISOCYTOSIS 2+; OVALOCYTES 1+; POLYCHROMASIA 1+; TOXIC GRANULATION 2+
== END 2016-12-05 15:13 | DRG 853 ==
LOC: ER 12:37 → 4W 14:30 → ICU 14:30 → EROBS 14:30 → ICU 17:45 → 4W 11-28 14:12
PROVIDERS: Emergency Medicine; Hospitalist; Internal Medicine; Internal Medicine Hematology & Oncology; Internal Medicine Pulmonary Disease; Specialist
PROC: 5A1955Z Respiratory Ventilation, Greater than 96 Consecutive Hours (ICD-10-PCS; principal; 2016-11-24)
PROC: 30233R1 Transfusion of Nonautologous Platelets into Peripheral Vein, Percutaneous Approach (ICD-10-PCS; principal; 2016-11-24)
PROC: 30233N1 Transfusion of Nonautologous Red Blood Cells into Peripheral Vein, Percutaneous Approach (ICD-10-PCS; principal; 2016-11-24)
PROC: 0B9J8ZX Drainage of Left Lower Lung Lobe, Via Natural or Artificial Opening Endoscopic, Diagnostic (ICD-10-PCS; 2016-11-27)
PROC: 0B9F8ZX Drainage of Right Lower Lung Lobe, Via Natural or Artificial Opening Endoscopic, Diagnostic (ICD-10-PCS; 2016-11-27)
DX: A41.9 Sepsis, unspecified organism (principal); E43 Unspecified severe protein-calorie malnutrition; J69.0 Pneumonitis due to inhalation of food and vomit; G93.41 Metabolic encephalopathy; N17.0 Acute kidney failure with tubular necrosis; I50.32 Chronic diastolic (congestive) heart failure; J96.11 Chronic respiratory failure with hypoxia; I13.0 Hypertensive heart and chronic kidney disease with heart failure and stage 1 through stage 4 chronic kidney disease, or unspecified chronic kidney disease; E87.0 Hyperosmolality and hypernatremia; D61.818 Other pancytopenia; N18.9 Chronic kidney disease, unspecified; D46.9 Myelodysplastic syndrome, unspecified; I48.2 Chronic atrial fibrillation; I25.10 Atherosclerotic heart disease of native coronary artery without angina pectoris; K21.9 Gastro-esophageal reflux disease without esophagitis; G47.33 Obstructive sleep apnea (adult) (pediatric); E78.5 Hyperlipidemia, unspecified; I73.9 Peripheral vascular disease, unspecified; E03.9 Hypothyroidism, unspecified; M10.9 Gout, unspecified; H91.90 Unspecified hearing loss, unspecified ear; E66.9 Obesity, unspecified; I25.5 Ischemic cardiomyopathy; N40.1 Benign prostatic hyperplasia with lower urinary tract symptoms; Y95 Nosocomial condition; J38.00 Paralysis of vocal cords and larynx, unspecified; D69.6 Thrombocytopenia, unspecified; Z95.5 Presence of coronary angioplasty implant and graft; Z95.1 Presence of aortocoronary bypass graft; Z87.891 Personal history of nicotine dependence; Z85.21 Personal history of malignant neoplasm of larynx; Z92.3 Personal history of irradiation; I25.2 Old myocardial infarction; Z68.33 Body mass index [BMI] 33.0-33.9, adult; Z95.2 Presence of prosthetic heart valve; Z86.74 Personal history of sudden cardiac arrest; Z95.810 Presence of automatic (implantable) cardiac defibrillator; Z93.0 Tracheostomy status; Z93.1 Gastrostomy status; Z79.51 Long term (current) use of inhaled steroids; Z79.899 Other long term (current) drug therapy
CPT/HCPCS: 10045; 10078